=== PATIENT | female | born 1945 | race Caucasian/White ===

== ENCOUNTER → 2018-08-20 09:46 | Outpatient (CLI) | payer MEDICARE, SELFPAY ==
--- NOTE | 2018-08-20 09:48 | DI.RAD.S_ITS ---
PROCEDURE: XR KNEE LT 3V INDICATIONS: left knee pain TECHNIQUE: 3 views of the knee were acquired. COMPARISON: None. FINDINGS: Bones: No fractures or dislocations. There is a mild degree of medial and lateral compartment joint space narrowing, but a moderate degree of such degeneration at the lateral facet of the patellofemoral joint with osteophytic spurring superiorly No suspicious bony lesions. Soft tissues: No joint effusion. No suspicious soft tissue calcifications. 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 Dictated by: Anil Saldivar M.D. on 08/20/2018 at 10:52 Approved by: Anil Saldivar M.D. on 08/20/2018 at 10:54
== END ==
PROVIDERS: PCP Family Medicine; Visit Provider Internal Medicine
DX: M25.562 Pain in left knee (principal); M17.12 Unilateral primary osteoarthritis, left knee
CPT/HCPCS: 73562

== ENCOUNTER → 2018-11-29 10:12 | Outpatient (CLI) | payer MEDICARE, SELFPAY ==
--- NOTE | 2018-11-29 09:15 | DI.MG.S_ITS ---
Patient Name: NORY SANTOYO date: 1945 Sex: F Attending Physician: Christopher Indications: Date: 11/29/2018 10:19 At the request of: DEIRDRE MENENDEZ Procedure: MM screening mammo BI BILATERAL DIGITAL SCREENING MAMMOGRAM 3D/2D WITH CAD: 11/29/2018 CLINICAL: Routine screening. Comparison is made to exams dated: 10/31/2017 mammogram, 10/25/2016 mammogram, and 10/24/2015 mammogram - [facility]. The tissue of both breasts is heterogeneously dense. This may lower the sensitivity of mammography. Current study was also evaluated with a Computer Aided Detection (CAD) system. No significant masses, calcifications, or other findings are seen in either breast. There has been no significant interval change. IMPRESSION: NEGATIVE There is no mammographic evidence of malignancy. A 1 year screening mammogram is recommended. This exam was interpreted at Station ID: [id number]. NOTE: For mammograms, a report in lay terms will be sent to the patient. Approximately 15% of breast malignancies will not be visualized mammographically. In the management of a palpable breast mass, a negative mammogram must not discourage biopsy of a clinically suspicious lesion. Electronically Signed By: Sincere anand/shari:11/29/2018 14:14:20 letter sent: Normal Exam ACR BI-RADS Category 1: Negative 3341F
== END ==
PROVIDERS: PCP Family Medicine; Visit Provider Family Medicine
DX: Z12.31 Encounter for screening mammogram for malignant neoplasm of breast (principal)
CPT/HCPCS: 77063; 77067

== ENCOUNTER → 2018-12-16 08:08 | Outpatient (CLI) | payer MEDICARE, SELFPAY ==
[2018-12-16 09:08] LABS: Add Manual Diff / Slide Review NO; Basophils Absolute Auto 100 /uL (0-100); Basophils Percent Auto 1.9 % (0-2); Eosinophils Absolute Auto 200 /uL (0-450); Eosinophils Percent Auto 4.5 % (2-4); Hematocrit 44.8 % (36-46); Hemoglobin 15.1 g/dL (12.0-16.0); Lymphocytes Absolute Auto 1600 /uL (1100-4500); Lymphocytes Percent Auto 39.5 % (25-40); Mean Corpuscular HGB Conc 33.6 % (30-36); Mean Corpuscular Hemoglobin 31.9 PG (26-34); Mean Corpuscular Volume 94.8 fL (80-100); Monocytes Absolute Auto 400 /uL (0-900); Monocytes Percent Auto 10.4 % (3-14); Neutrophils Absolute Auto 1800 /uL (1500-7000); Neutrophils Percent Auto 43.7 % (50-75); Platelet Count 193 X10^3/uL (150-400); Red Blood Cell Count 4.73 X10^6/uL (4.0-5.2); Red Cell Distribution Width 13.1 % (11.6-14.8); White Blood Cell Count 4.1 X10^3/uL (4.5-11.0)
[2018-12-16 09:18] LABS: Alanine Aminotransferase 36 IU/L (9-52); Albumin 4.7 g/dL (3.5-5.0); Albumin Globulin Ratio 1.6 (1.0-2.8); Alkaline Phosphatase 70 U/L (38-126); Aspartate Aminotransferase 30 IU/L (14-36); BUN Creatinine Ratio 28.8 (6-22); Bilirubin Total 1.5 mg/dL (0.2-1.3); Blood Urea Nitrogen 23 mg/dL (7-17); Calcium 9.8 mg/dL (8.4-10.2); Carbon Dioxide 29 mmol/L (22-32); Chloride 100 mmol/L (98-107); Cholesterol 209 mg/dL (140-199); Estimated Glomerular Filt Rate > 60.0 mL/min (>60); Globulin 2.9 g/dL (1.7-4.1); Glucose 98 mg/dL (80-110); HDL Cholesterol 83 mg/dL (40-60); HEMOLYSIS < 15 (0-50); LDL Cholesterol Calculated 96 mg/dL (<100); Potassium 4.7 mmol/L (3.4-5.1); Sodium 137 mmol/L (137-145); Total Protein 7.6 g/dL (6.3-8.2); Triglycerides 148 mg/dL (35-150)
[2018-12-16 09:51] LABS: TSH w/ Reflex to FT4 3.57 uIU/mL (0.47-4.68)
== END ==
PROVIDERS: PCP Family Medicine; Visit Provider Family Medicine
DX: E03.9 Hypothyroidism, unspecified (principal); E78.2 Mixed hyperlipidemia
CPT/HCPCS: 36415; 80053; 80061; 84443; 85025

== ENCOUNTER → 2019-08-31 15:51 | Outpatient (CLI) | payer MEDICARE, SELFPAY ==
[2019-08-31 16:14] LABS: Add Manual Diff / Slide Review NO; Basophils Absolute Auto 100 /uL (0-100); Basophils Percent Auto 1.1 % (0-2); Eosinophils Absolute Auto 200 /uL (0-450); Eosinophils Percent Auto 2.6 % (2-4); Hematocrit 41.8 % (36-46); Hemoglobin 14.1 g/dL (12.0-16.0); Lymphocytes Absolute Auto 1700 /uL (1100-4500); Lymphocytes Percent Auto 23.6 % (25-40); Mean Corpuscular HGB Conc 33.8 % (30-36); Mean Corpuscular Volume 94.6 fL (80-100); Monocytes Absolute Auto 800 /uL (0-900); Monocytes Percent Auto 10.8 % (3-14); Neutrophils Absolute Auto 4400 /uL (1500-7000); Neutrophils Percent Auto 61.9 % (50-75); Platelet Count 186 X10^3/uL (150-400); Red Blood Cell Count 4.42 X10^6/uL (4.0-5.2); Red Cell Distribution Width 13.1 % (11.6-14.8); White Blood Cell Count 7.1 X10^3/uL (4.5-11.0)
[2019-08-31 16:47] LABS: Alanine Aminotransferase 35 IU/L (9-52); Albumin 4.5 g/dL (3.5-5.0); Albumin Globulin Ratio 1.7 (1.0-2.8); Alkaline Phosphatase 70 U/L (38-126); Aspartate Aminotransferase 33 IU/L (14-36); BUN Creatinine Ratio 32.5 (6-22); Bilirubin Total 1.5 mg/dL (0.2-1.3); Blood Urea Nitrogen 26 mg/dL (7-17); Calcium 9.8 mg/dL (8.4-10.2); Carbon Dioxide 31 mmol/L (22-32); Chloride 104 mmol/L (98-107); Estimated Glomerular Filt Rate > 60.0 mL/min (>60); Globulin 2.6 g/dL (1.7-4.1); Glucose 80 mg/dL (80-110); HEMOLYSIS < 15 (0-50); Potassium 3.8 mmol/L (3.4-5.1); Sodium 141 mmol/L (137-145); Total Protein 7.1 g/dL (6.3-8.2)
[2019-08-31 17:01] LABS: Vitamin D 25 Hydroxy (D3) 27.9 ng/mL (30.0-100.0)
[2019-08-31 17:13] LABS: Thyroid Stimulating Hormone 0.87 uIU/mL (0.47-4.68)
== END ==
PROVIDERS: PCP Family Medicine; Visit Provider Family Medicine
DX: E03.9 Hypothyroidism, unspecified (principal)
CPT/HCPCS: 36415; 80053; 82306; 84443; 85025

== ENCOUNTER → 2019-12-10 08:29 | Outpatient (CLI) | payer MEDICARE, SELFPAY ==
--- NOTE | 2019-12-10 | DI.MG.S_ITS ---
BILATERAL DIGITAL SCREENING MAMMOGRAM 3D/2D WITH CAD: 12/10/2019 CLINICAL: Routine screening. Comparison is made to exams dated: 11/29/2018 mammogram, 10/31/2017 mammogram, 10/25/2016 mammogram, 10/24/2015 mammogram, 08/24/2013 mammogram, and 09/08/2014 mammogram - [facility]. The tissue of both breasts is heterogeneously dense. This may lower the sensitivity of mammography. Current study was also evaluated with a Computer Aided Detection (CAD) system. No significant masses, calcifications, or other findings are seen in either breast. There has been no significant interval change. IMPRESSION: NEGATIVE There is no mammographic evidence of malignancy. A 1 year screening mammogram is recommended. This exam was interpreted at Station ID: [id number]. NOTE: For mammograms, a report in lay terms will be sent to the patient. Approximately 15% of breast malignancies will not be visualized mammographically. In the management of a palpable breast mass, a negative mammogram must not discourage biopsy of a clinically suspicious lesion. Electronically Signed By: Boo gomez/shari:12/10/2019 12:12:37 letter sent: Normal Exam ACR BI-RADS Category 1: Negative 3341F
== END ==
PROVIDERS: PCP Family Medicine; Visit Provider Family Medicine
DX: Z12.31 Encounter for screening mammogram for malignant neoplasm of breast (principal)
CPT/HCPCS: 77063; 77067

== ENCOUNTER 2020-01-05 12:38 | Day surgery (SDC) | payer MEDICARE, SELFPAY ==
[2020-01-05] VITALS (9 sets, daily range): BP systolic 96–127; BP diastolic 49–67; PULSE 50–62; RESP 10–20; TEMP 36.2–36.7; O2SAT 94–100; BMI 20.7
[2020-01-05] MEDS: SODIUM CHLORIDE 0.9% 1,000 ML 200 ML IV (13:25)
--- NOTE | 2020-01-05 14:18 | PM.HP.1 ---
History of Present Illness History of Present Illness Date Patient Seen: 01/05/20 Time Patient Seen: 14:18 Chief complaint: [id number] SCREENING COLONOSOPY Narrative: This is a 74-year-old woman with history of a colonoscopy 10 years ago, which was reportedly normal. She has a history of Graves disease, hyperlipidemia, and depression. She denies any melena, hematochezia, unexplained abdominal pain, or unexplained weight loss. ROS Thirteen system review is otherwise negative other than as mentioned below and in HPI. PE: GENERAL: Well groomed and cooperative. Appears stated age. Answers questions promptly and appropriately. Vital signs noted. HENT: Normocephalic, atraumatic. Hearing intact. Oral mucosa is pink and moist. EYES: Conjunctiva pink, sclera white, no periorbital swelling. CARDIOVASCULAR: Regular rate. No pedal edema. RESPIRATORY: Non-tachypneic, breathing comfortably on room air. GASTROINTESTINAL: Abdomen soft and non-distended GENITALURINARY: No flank tenderness. MUSCULOSKELETAL: Equal tone and mass bilaterally. SKIN: Warm, dry, soft, appropriate color for ethnicity. No other lesions, rashes, or wounds. NEURO: Alert and Oriented X 3. No gross sensory deficits, or cognitive issues. PSYCH: Appropriate affect and mood. Patient History Medical History Chicken pox (Resolved 1951) Graves' disease (Chronic 1983) Measles (Resolved 1951) MRSA infection (Resolved 2011) Mumps (Resolved 1953) Surgical History Anesthesia (Resolved) Status post breast biopsy (Resolved 2011) Family & Social History Family History Father CVD (cardiovascular disease) High cholesterol Stroke Brain bleed Mother Cancer Leukemia Sister Age: 71 Osteoporosis Brother AIDS (acquired immune deficiency syndrome) Hemophilia Social History: household members spouse Tobacco & Substance use: Smoking Status Never smoker alcohol intake current alcohol intake frequency a few times a month Substance Use Type does not use Meds Home Medications and Allergies Home Medications Medication Instructions Recorded Confirmed Type CALCIUM CARBONATE/VITAMIN D3 #0 01/26/10 12/22/19 History (Oyster Shell Calcium-Vit D Tab) cholecalciferol (vitamin D3) 2,000 unit PO QDAY #0 12/31/12 01/05/20 History [Vitamin D3] cyanocobalamin (vitamin B-12) 500 mcg PO QDAY #0 08/30/17 01/05/20 History [Vitamin B-12] varicella-zoster [id number] (PF) 50 0.5 ml IM ONCE #1 each 08/20/18 12/22/19 Rx mcg/0.5 mL IM susp, kit citalopram 10 mg tablet 10 mg PO DAILY #60 tab 08/31/19 01/05/20 Rx levothyroxine 75 mcg tablet See Rx Instructions .ROUTE 09/02/19 01/05/20 Rx .COMPLEX #90 tablet atorvastatin 10 mg tablet 10 mg PO HS #90 tab 11/12/19 01/05/20 Rx Allergies Allergy/AdvReac Type Severity Reaction Status Date / Time No Known Drug Allergies Allergy Verified 01/05/20 13:09 Exam Vital Signs (past 8 hours): - 01/05/20 13:12 Temperature 97.7 F Pulse Rate 62 Respiratory Rate 20 Blood Pressure 127/67 Pulse Oximetry 97 Oxygen Delivery Method Room Air Assessment & Plan Assessment and plan (1) At average risk for colon cancer: Current visit: Yes Status: Acute Assessment & Plan narrative: Risks and benefits of screening colonoscopy and possible polypectomy were discussed with the patient including risk of bleeding, perforation, need for additional procedures, risks of anesthesia. The patient desires to proceed with the colonoscopy procedure. Time Spent With Patient Time with patient: 15-24 minutes Quality VTE Deep Vein Thrombosis/Pulmonary Embolism Present on Admission: No
--- NOTE | 2020-01-05 14:51 | PM.OP.ENDO ---
Operative Date/Time/Diagnoses Date of procedure: 01/05/20 Time of procedure: 14:51 Pre-op diagnosis: Average risk for change cancer Post-op diagnosis: same Procedure & Clinicians Study performed: Colonoscopy Same procedure as scheduled: Yes Indications: Average risk for colon cancer, previous screening colonoscopy 10 years ago Surgeon: Diane Martínez Procedure Notes SCOAP/Timeout: Performed Procedure in detail: The patient was brought to the room and placed in left lateral decubitus position with all bony prominences padded. A time-out was performed and then the patient was given procedural sedation starting with 2 mg of Versed and 100 mcg of fentanyl. She got a total of 3 mg of Versed and 150 micro g of fentanyl for the whole procedure. Vitals were monitored throughout the procedure and remained stable. Once adequately sedated the procedure was begun. A rectal exam was performed revealing no abnormalities. The colonoscope was then introduced to the rectum and advanced to the cecum in the usual fashion. The colon was very tortuous, and it took many advancement maneuvers to safely reach the cecum. The cecum was identified by the appendiceal orifice, the mucosal tri-fold, and the ileocecal valve. The scope was then retracted while rotating side to side and examining each mucosal fold. No polyps, lesions, or abnormalities were seen. At the conclusion of the procedure retroflexion was performed and small grade 1-2 internal hemorrhoids without stigmata of bleeding were seen. The scope was then withdrawn from the rectum the procedure was concluded. The patient tolerated the procedure well and was transferred to the PACU in stable condition. Scope withdrawal time: 8 Sedation minutes: 29 Specimen(s): none sent Complications: none Impression: Normal colon, very tortuous Post-procedure Recommendations: Colonscopy in 10 years (Depending on whether the patient is healthy enough for the procedure at that time. Should be based on discussion with patient's primary care doctor.) Follow up: as needed Disposition: PACU
[2020-01-05] MEDS: fentaNYL 250 MCG/5 ML INJ IV (14:54)
[2020-01-05] MEDS: MIDAZOLAM 5 MG/ML VIAL IV (14:54)
--- NOTE | 2020-01-05 15:56 | SUR.PHASEII ---
Patient ambulated to bathroom without any difficulty and denies dizziness or nausea. GCS 15. Recheck of vitals after ambulation are as follows: BP 111/61, HR 58, RR 16, and oxygen saturation 99% on room air. Home with friend in stable condition. All belongings returned to patient.
== END 2020-01-05 15:59 | disposition home or self-care (01) ==
PROVIDERS: PCP Family Medicine; Referring Provider Surgery; Visit Provider Surgery
PROC: 0DJD8ZZ Inspection of Lower Intestinal Tract, Via Natural or Artificial Opening Endoscopic (ICD-10-PCS; CPT 45378; principal; 2020-01-05 13:45)
DX: Z12.11 Encounter for screening for malignant neoplasm of colon (principal); K64.0 First degree hemorrhoids
CPT/HCPCS: G0121; 99152; 99153; J2250; J3010

== ENCOUNTER → 2020-01-16 09:06 | Outpatient (CLI) | payer MEDICARE, SELFPAY ==
[2020-01-16 10:18] LABS: Cholesterol 161 mg/dL (140-199); HDL Cholesterol 61 mg/dL (40-60); LDL Cholesterol Calculated 65 mg/dL (<100); Triglycerides 174 mg/dL (35-150)
[2020-01-16 10:33] LABS: Vitamin D 25 Hydroxy (D3) 31.9 ng/mL (30.0-100.0)
== END ==
PROVIDERS: PCP Family Medicine; Referring Provider Family Medicine; Visit Provider Family Medicine
DX: E78.2 Mixed hyperlipidemia (principal)
CPT/HCPCS: 36415; 80061; 82306

== ENCOUNTER → 2020-05-27 12:24 | Outpatient (CLI) | payer MEDICARE, SELFPAY ==
[2020-05-27 13:10] LABS: Add Manual Diff / Slide Review NO; Basophils Absolute Auto 0 /uL (0-100); Basophils Percent Auto 0.8 % (0-2); Eosinophils Absolute Auto 100 /uL (0-450); Eosinophils Percent Auto 1.6 % (2-4); Hematocrit 43.2 % (36-46); Hemoglobin 14.2 g/dL (12.0-16.0); Lymphocytes Absolute Auto 1400 /uL (1100-4500); Lymphocytes Percent Auto 28.1 % (25-40); Mean Corpuscular Hemoglobin 31.1 PG (26-34); Mean Corpuscular Volume 94.2 fL (80-100); Monocytes Absolute Auto 500 /uL (0-900); Monocytes Percent Auto 10.2 % (3-14); Neutrophils Absolute Auto 2900 /uL (1500-7000); Neutrophils Percent Auto 59.3 % (50-75); Platelet Count 154 X10^3/uL (150-400); Red Blood Cell Count 4.58 X10^6/uL (4.0-5.2); White Blood Cell Count 4.8 X10^3/uL (4.5-11.0)
[2020-05-27 13:47] LABS: Erythrocyte Sedimentation Rate 6 MM/HR (0-20)
[2020-05-27 14:47] LABS: Free T4, Direct Thyroxine 1.27 ng/dL (0.78-2.19)
[2020-05-27 15:01] LABS: Thyroid Stimulating Hormone 0.462 uIU/mL (0.47-4.68)
[2020-05-27 16:45] LABS: Alanine Aminotransferase 43 IU/L (<35); Albumin 4.3 g/dL (3.5-5.0); Albumin Globulin Ratio 1.6 (1.0-2.8); Alkaline Phosphatase 62 U/L (38-126); Aspartate Aminotransferase 39 IU/L (14-36); BUN Creatinine Ratio 29.7 (6-22); Bilirubin Total 1.4 mg/dL (0.2-1.3); Blood Urea Nitrogen 22 mg/dL (7-17); Calcium 9.8 mg/dL (8.4-10.2); Carbon Dioxide 28 mmol/L (22-32); Chloride 104 mmol/L (98-107); Estimated Glomerular Filt Rate > 60.0 mL/min (>60); Globulin 2.7 g/dL (1.7-4.1); Glucose 98 mg/dL (80-110); HEMOLYSIS 16 (0-50); Potassium 5.2 mmol/L (3.4-5.1); Sodium 137 mmol/L (137-145)
[2020-05-27 17:19] LABS: Ferritin 29 ng/mL (11-264)
== END ==
PROVIDERS: PCP Family Medicine; Referring Provider Physician Assistant Medical; Visit Provider Physician Assistant Medical
DX: L64.8 Other androgenic alopecia (principal)
CPT/HCPCS: 36415; 80053; 82728; 84439; 84443; 85025; 85651

== ENCOUNTER → 2020-06-22 10:51 | Outpatient (CLI) | payer MEDICARE, SELFPAY ==
[2020-06-22 12:27] LABS: Alanine Aminotransferase 36 IU/L (<35); Albumin 4.4 g/dL (3.5-5.0); Alkaline Phosphatase 88 U/L (38-126); Aspartate Aminotransferase 33 IU/L (14-36); Bilirubin Total 1.1 mg/dL (0.2-1.3); Globulin 2.2 g/dL (1.7-4.1); HEMOLYSIS < 15 (0-50); Total Protein 6.6 g/dL (6.3-8.2)
[2020-06-22 12:52] LABS: Thyroid Stimulating Hormone 0.097 uIU/mL (0.47-4.68)
[2020-06-23 06:36] LABS: HBsAg Screen Negative (Negative); Hepatitis A Antibody IgM Negative (Negative); Hepatitis B Core Antibody IgM Negative (Negative); Hepatitis C Antibody <0.1 s/co ratio (0.0-0.9)
== END ==
PROVIDERS: PCP Family Medicine; Referring Provider Family Medicine; Visit Provider Family Medicine
DX: E03.9 Hypothyroidism, unspecified (principal)
CPT/HCPCS: 36415; 80074; 80076; 84443

== ENCOUNTER → 2020-07-06 17:36 | Outpatient (CLI) | payer MEDICARE, SELFPAY ==
[2020-07-06 18:14] LABS: C-Reactive Protein Quant < 0.5 mg/dL (<1.0)
[2020-07-06 18:20] LABS: Erythrocyte Sedimentation Rate 5 MM/HR (0-20)
== END ==
PROVIDERS: PCP Family Medicine; Referring Provider Family Medicine; Visit Provider Family Medicine
DX: R41.3 Other amnesia (principal)
CPT/HCPCS: 36415; 85651; 86140

== ENCOUNTER → 2020-07-18 13:24 | Outpatient (CLI) | payer MEDICARE, SELFPAY ==
--- NOTE | 2020-07-18 13:25 | DI.MRI.S_ITS ---
PROCEDURE: MR HEAD/BRAIN WO CON INDICATIONS: Memory impairment TECHNIQUE: Noncontrast axial T1 spin echo, axial T2 fast spin echo, sagittal and axial FLAIR, coronal T2 fast spin echo, axial gradient echo, axial diffusion and ADC through the brain. COMPARISON: None. FINDINGS: Image quality: Excellent. CSF Spaces: Basal cisterns are patent. No extra-axial fluid collections. Ventricles are normal in size and shape. Brain: No intracranial masses or hemorrhage. Nicole/white matter interface is normal. Brainstem appears normal. Diffusion-weighted images demonstrate no acute ischemic insult. No chronic ischemic insults. Normal intravascular flow voids are present. Skull and face: Calvarium has normal marrow signal. Orbits appear normal. Sinuses: Sinuses and mastoids are clear. IMPRESSION: Excellent appearance of the brain parenchyma for age, source of memory loss is not seen. No underlying ischemic injury or mass lesion is found. Dictated by: Anil Saldivar M.D. on 07/18/2020 at 13:54 Approved by: Anil Saldivar M.D. on 07/18/2020 at 13:55
== END ==
PROVIDERS: PCP Family Medicine; Referring Provider Family Medicine; Visit Provider Family Medicine
DX: R41.3 Other amnesia (principal)
CPT/HCPCS: 70551

== ENCOUNTER → 2020-07-29 14:09 | Outpatient (CLI) | payer MEDICARE, SELFPAY ==
[2020-07-29 16:43] LABS: Thyroid Stimulating Hormone 7.48 uIU/mL (0.47-4.68)
== END ==
PROVIDERS: PCP Family Medicine; Referring Provider Family Medicine; Visit Provider Family Medicine
DX: E03.9 Hypothyroidism, unspecified (principal)
CPT/HCPCS: 36415; 84443

== ENCOUNTER → 2020-10-03 11:39 | Outpatient (CLI) | payer MEDICARE, SELFPAY ==
[2020-10-03 13:19] LABS: Thyroid Stimulating Hormone 1.86 uIU/mL (0.47-4.68)
== END ==
PROVIDERS: PCP Family Medicine; Referring Provider Family Medicine; Visit Provider Family Medicine
DX: E03.9 Hypothyroidism, unspecified (principal)
CPT/HCPCS: 36415; 84443

== ENCOUNTER → 2020-11-23 14:39 | Outpatient (CLI) | payer MEDICARE, SELFPAY | PROVIDERS: PCP Student in an Organized Health Care Education/Training Program; Referring Provider Student in an Organized Health Care Education/Training Program; Visit Provider Student in an Organized Health Care Education/Training Program | DX: Z13.820 Encounter for screening for osteoporosis (principal); Z78.0 Asymptomatic menopausal state; E07.9 Disorder of thyroid, unspecified; Z82.62 Family history of osteoporosis | CPT/HCPCS: 77080 ==

== ENCOUNTER → 2020-12-16 13:54 | Outpatient (CLI) | payer MEDICARE, SELFPAY ==
[2020-12-16] MEDS: COVID-19 VACC #1, MRNA(MOD) 100 MCG/0.5 ML VIAL IM (14:14)
== END ==
PROVIDERS: PCP Student in an Organized Health Care Education/Training Program; Visit Provider Internal Medicine
DX: Z23 Encounter for immunization (principal)
CPT/HCPCS: 0011A; 91301

== ENCOUNTER → 2021-01-07 13:26 | Outpatient (CLI) | payer MEDICARE, SELFPAY ==
--- NOTE | 2021-01-07 | DI.MG.S_ITS ---
BILATERAL DIGITAL SCREENING MAMMOGRAM 3D/2D WITH CAD: 01/07/2021 CLINICAL: Routine screening. Comparison is made to exams dated: 12/10/2019 mammogram, 11/29/2018 mammogram, and 10/31/2017 mammogram - [facility]. The tissue of both breasts is heterogeneously dense. This may lower the sensitivity of mammography. Current study was also evaluated with a Computer Aided Detection (CAD) system. No significant masses, calcifications, or other findings are seen in either breast. There has been no significant interval change. IMPRESSION: NEGATIVE There is no mammographic evidence of malignancy. A 1 year screening mammogram is recommended. This exam was interpreted at Station ID: [id number]. NOTE: For mammograms, a report in lay terms will be sent to the patient. Approximately 15% of breast malignancies will not be visualized mammographically. In the management of a palpable breast mass, a negative mammogram must not discourage biopsy of a clinically suspicious lesion. Electronically Signed By: Sadi Terrazas M.D., jr/shari:01/09/2021 08:45:31 letter sent: Normal Exam ACR BI-RADS Category 1: Negative 3341F
== END ==
PROVIDERS: PCP Student in an Organized Health Care Education/Training Program; Referring Provider Student in an Organized Health Care Education/Training Program; Visit Provider Student in an Organized Health Care Education/Training Program
DX: Z12.31 Encounter for screening mammogram for malignant neoplasm of breast (principal)
CPT/HCPCS: 77063; 77067

== ENCOUNTER → 2021-01-13 13:32 | Outpatient (CLI) | payer MEDICARE, SELFPAY ==
[2021-01-13] MEDS: COVID-19 VACC #2, MRNA(MOD) 100 MCG/0.5 ML VIAL IM (13:40)
== END ==
PROVIDERS: PCP Student in an Organized Health Care Education/Training Program; Visit Provider Internal Medicine
DX: Z23 Encounter for immunization (principal)
CPT/HCPCS: 0012A; 91301

== ENCOUNTER → 2022-01-09 14:51 | Outpatient (CLI) | payer MEDICARE, SELFPAY ==
--- NOTE | 2022-01-09 | DI.MG.S_ITS ---
BILATERAL DIGITAL SCREENING MAMMOGRAM 3D/2D WITH CAD: 01/09/2022 CLINICAL: Routine screening. Comparison is made to exams dated: 01/07/2021 mammogram, 12/10/2019 mammogram, and 11/29/2018 mammogram - [facility]. The tissue of both breasts is heterogeneously dense. This may lower the sensitivity of mammography. Current study was also evaluated with a Computer Aided Detection (CAD) system. No significant masses, calcifications, or other findings are seen in either breast. There has been no significant interval change. IMPRESSION: NEGATIVE There is no mammographic evidence of malignancy. A 1 year screening mammogram is recommended. This exam was interpreted at Station ID: [id number]. NOTE: For mammograms, a report in lay terms will be sent to the patient. Approximately 15% of breast malignancies will not be visualized mammographically. In the management of a palpable breast mass, a negative mammogram must not discourage biopsy of a clinically suspicious lesion. Electronically Signed By: Sincere anand/shari:01/09/2022 15:53:14 letter sent: Normal Exam ACR BI-RADS Category 1: Negative 3341F
== END ==
PROVIDERS: PCP Student in an Organized Health Care Education/Training Program; Referring Provider Student in an Organized Health Care Education/Training Program; Visit Provider Student in an Organized Health Care Education/Training Program
DX: Z12.31 Encounter for screening mammogram for malignant neoplasm of breast (principal)
CPT/HCPCS: 77063; 77067

== ENCOUNTER → 2022-02-12 08:13 | Outpatient (CLI) | payer MEDICARE, SELFPAY ==
[2022-02-12 09:47] LABS: Add Manual Diff / Slide Review NO; Basophils Absolute Auto 100 /uL (0-100); Basophils Percent Auto 1.3 % (0-2); Eosinophils Absolute Auto 200 /uL (0-450); Eosinophils Percent Auto 4.7 % (2-4); Hematocrit 41.8 % (36-46); Hemoglobin 14.1 g/dL (12.0-16.0); Lymphocytes Absolute Auto 1300 /uL (1100-4500); Mean Corpuscular HGB Conc 33.8 % (30-36); Mean Corpuscular Hemoglobin 31.6 PG (26-34); Mean Corpuscular Volume 93.7 fL (80-100); Monocytes Absolute Auto 500 /uL (0-900); Monocytes Percent Auto 10.6 % (3-14); Neutrophils Absolute Auto 2400 /uL (1500-7000); Neutrophils Percent Auto 54.4 % (50-75); Platelet Count 194 X10^3/uL (150-400); Red Blood Cell Count 4.46 X10^6/uL (4.0-5.2); Red Cell Distribution Width 13.2 % (11.6-14.8); White Blood Cell Count 4.5 X10^3/uL (4.5-11.0)
[2022-02-12 10:22] LABS: BUN Creatinine Ratio 38.5 (6-22); Blood Urea Nitrogen 30 mg/dL (7-17); Calcium 9.5 mg/dL (8.4-10.2); Carbon Dioxide 28 mmol/L (22-32); Chloride 105 mmol/L (98-107); Cholesterol 194 mg/dL (140-199); Estimated Glomerular Filt Rate > 60.0 mL/min (>60); Glucose 96 mg/dL (80-110); HDL Cholesterol 73 mg/dL (40-60); HEMOLYSIS < 15 (0-50); LDL Cholesterol Calculated 102 mg/dL (<100); Sodium 138 mmol/L (137-145); Triglycerides 97 mg/dL (35-150)
[2022-02-12 10:26] LABS: Potassium 5.6 mmol/L (3.4-5.1)
[2022-02-12 10:50] LABS: TSH w/ Reflex to FT4 2.02 uIU/mL (0.47-4.68)
[2022-02-12 11:06] LABS: Vitamin B12 791 pg/mL (239-931)
[2022-02-12 16:10] LABS: Vitamin D 25 Hydroxy (D3) 34.8 ng/mL (30.0-100.0)
== END ==
PROVIDERS: PCP Student in an Organized Health Care Education/Training Program; Referring Provider Student in an Organized Health Care Education/Training Program; Visit Provider Student in an Organized Health Care Education/Training Program
DX: E03.9 Hypothyroidism, unspecified (principal); E55.9 Vitamin D deficiency, unspecified; F32.9 Major depressive disorder, single episode, unspecified; R41.3 Other amnesia; R53.83 Other fatigue; E78.2 Mixed hyperlipidemia
CPT/HCPCS: 36415; 80048; 80061; 82306; 82607; 84443; 85025

== ENCOUNTER → 2022-03-15 15:59 | Outpatient (CLI) | payer MEDICARE, SELFPAY ==
--- NOTE | 2022-03-15 16:00 | DI.RAD.S_ITS ---
PROCEDURE: XR KNEE LT 3V INDICATIONS: Knee pain not responding to PT TECHNIQUE: 3 views of the knee were acquired. COMPARISON: [facility], CR, XR KNEE LT 3V, 08/20/2018, 9:34. FINDINGS: Bones: No fractures or dislocations. No suspicious bony lesions. Tricompartmental knee joint space narrowing with periarticular osteophyte formation, severe involving the lateral patellofemoral knee joint. There is mild lateral patellar migration and tilt. Soft tissues: No significant joint effusion. No suspicious soft tissue calcifications. IMPRESSION: 1. Tricompartmental knee joint degeneration, severe involving the lateral patellofemoral knee joint which has progressed compared to prior examination dated 08/20/2018. Dictated by: Ashish CARD Interpreted: Latanya Shields MD on 03/15/2022 at 16:29 Transcribed by: MORENITA on 03/15/2022 at 16:30 Approved by: Latanya Shields M.D. on 03/15/2022 at 16:36
== END ==
PROVIDERS: PCP Student in an Organized Health Care Education/Training Program; Referring Provider Student in an Organized Health Care Education/Training Program; Visit Provider Student in an Organized Health Care Education/Training Program
DX: M25.562 Pain in left knee (principal); M17.12 Unilateral primary osteoarthritis, left knee
CPT/HCPCS: 73562

== ENCOUNTER → 2022-03-27 14:15 | Outpatient (CLI) | payer MEDICARE, SELFPAY ==
[2022-03-27 15:25] LABS: Blood Urea Nitrogen 19 mg/dL (7-17); Calcium 9.3 mg/dL (8.4-10.2); Carbon Dioxide 30 mmol/L (22-32); Chloride 102 mmol/L (98-107); Estimated Glomerular Filt Rate > 60 mL/min (>60); Glucose 93 mg/dL (80-110); HEMOLYSIS < 15 (0-50); Magnesium 2.1 mg/dL (1.6-2.3); Potassium 4.4 mmol/L (3.4-5.1); Sodium 138 mmol/L (137-145)
== END ==
PROVIDERS: Family Provider Student in an Organized Health Care Education/Training Program; PCP Student in an Organized Health Care Education/Training Program; Referring Provider Student in an Organized Health Care Education/Training Program; Visit Provider Student in an Organized Health Care Education/Training Program
DX: E87.5 Hyperkalemia (principal)
CPT/HCPCS: 36415; 80048; 83735

== ENCOUNTER 2022-05-17 09:45 | Outpatient (RCR) | payer MEDICARE, SELFPAY ==
--- NOTE | 2022-03-21 17:24 | PT.OIE ---
Current Diagnoses Trochanteric bursitis, left hip (03/21/22) Iliotibial band syndrome, left leg (03/21/22) Unspecified urinary incontinence (03/21/22) Past Medical History (Last Reviewed 01/05/20 @ 14:20 by Diane Martínez MD) Chicken pox (1951) Graves' disease (1983) Measles (1951) MRSA infection (2011) Mumps (1953) Past Surgical History (Last Reviewed 01/05/20 @ 14:20 by Diane Martínez MD) Anesthesia Status post breast biopsy (2011) Visit Care Team Role Provider Type Loki Diaz MD Attending Provider Physician Family Provider Primary Care Provider Referring Provider Specialty: Internal Medicine Address: [address] [place] [address], [address], [facility] Email: [email or web address] Physical Therapy Initial Evaluation PT-OP-A Visit Information Start: 03/21/22 09:20 Freq: Status: Active Protocol: Document 03/21/22 10:34 [facility] (Rec: 03/21/22 11:19 [facility] [id number]) Out-Patient Physical Therapy Visit Information Visit Information Visit Type Initial Evaluation Visit Start Time 10:30 Visit Stop Time 11:15 Total Visit Minutes 45 Visit Number 1 Evaluation Information Evaluation Date 03/21/22 PT-OP-B Current Condition Start: 03/21/22 09:20 Freq: Status: Active Protocol: Document 03/21/22 10:30 [facility] (Rec: 03/21/22 11:19 [facility] [id number]) Current Condition History of Current Condition Onset Date 1.5 years ago History of Current Condition pt had a history of ITB issues x 6 weeks and she has been going to PT for this and it is better. pts symtoms started with walking [employer], she started wearing a pad with walking, it seemed to progresss. Then she started noticing leaking that happened after her coffee in the am and she started wearing pads. Leakage can occur with getting up and down and coughing. She does note that she has had more urgency to void. She does wake up and void 1 xm per night. Sometimes two times per night Prior Treatments and Tests 1 vaginal delivery. PT-OP-C Subjective Start: 03/21/22 09:20 Freq: Status: Active Protocol: Document 03/21/22 10:30 [facility] (Rec: 03/22/22 15:10 [facility] [id number]) Patient Questionnaires Pelvic Pain and Urgency/Frequency Patient Symptom Scale Pelvic Pain Score 7 PT-OP-I Pelvic Floor Start: 03/21/22 14:12 Freq: Status: Active Protocol: Document 03/21/22 10:30 [facility] (Rec: 03/21/22 14:17 [facility] [id number]) Pelvic Floor Assessment Urine Pelvic Floor Surgery No Urinary Symptoms Urge Sensation Leakage Size Large Leakage Cause Cough,Exercise,Lifting,Sneeze Other Leakage Causes leakage increases with walking . Joi reports she uses a size 5 pad which is a heavy duty pad and she fills it up on a walk. No leaks at night Nocturia 1-2 times per night Pelvic Clock Pelvic Clock 3-6 Guarding Pelvic Clock 6-9 Guarding Pelvic Clock Other left side guarding and difficulty relaxing following a contraction Contraction Ability Voluntary Contraction Weak Voluntary Relaxation Weak Manual Muscle Testing Left 3 Manual Muscle Testing Right 3 Manual Muscle Testing Anterior 2 Manual Muscle Testing Posterior 2 Muscle Endurance (Seconds) 3 Comments Pelvic Floor Comments Decreased endurnace of the pelvic floor, pt is guarded on the left and she has difficulty relaxing her pelvic floor following a contraction due to guarding on the left side PT-OP-J Posture/Palpation/Skin Start: 03/21/22 09:20 Freq: Status: Active Protocol: Document 03/21/22 10:30 [facility] (Rec: 03/22/22 15:08 [facility] [id number]) Palpation Assessment Location left lateral garsia of the levator ani Palpation Findings Soft Tissue Tightness,Muscle Guarding,Tenderness Palpation Details pt has history of left sided trochteric bursitis and hip pain, left sided pelvic floor guarding PT-OP-Q Treatments Start: 03/21/22 09:20 Freq: Status: Active Protocol: Document 03/21/22 10:30 [facility] (Rec: 03/22/22 15:08 [facility] [id number]) Therapeutic Exercises Supine Exercises pelvic floor isolation Reps/Minutes pt to start with holding 3-5 seconds and relax for 10 seconds between con PT-OP-T Assessment and Plan Start: 03/21/22 09:20 Freq: Status: Active Protocol: Document 03/21/22 10:30 [facility] (Rec: 03/22/22 15:11 [facility] [id number]) Physical Therapy Assessment Rehab Potential Rehabilitation Potential Excellent Evaluation Complexity Number of Personal Factors/Comorbidities 0 Number of Body Systems Impaired 1-2 Clinical Presentation at Evaluation Stable Impairments Impairments Activity Tolerance,Functional Activities,Soft Tissue Mobility,Strength,Tone Other Impairments urinary incontinence Goals 4 Impairment Decreased endurance of the levator ani with Joi being able to sustain a contraction for 3 seconds in supine Short Term Goal (STG) Joi is able to sustain a pelvic floor contraction x 10 seconds in supine STG Duration 6 weeks Usp Goal (LTG) Joi is able to sustain a pelvic floor contraction x 10 seconds in supine and standing LTG Duration 12 weeks 3 Impairment Muscle guarding of the left lateral wall of the levator ani and in the obturator internus on the left Short Term Goal (STG) Joi is educated on stretches for her pelvic floor and hip ER to help relax the pelvic floor at rest and improve her ability to fully void STG Duration 4 weeks 2 Impairment Decreased strength of the levator ani Usp Goal (LTG) Joi is able to improve strength of the levator ani by 1 muscle grade or better for improved support to her bladder LTG Duration 12 weeks 1 Impairment urinary stress incontinence made worse with walking and with change of positions such as sit-stand [employer] Goal (LTG) Joi reports a overall reduction in urinary stress incontinence and is able to walk the loop at [facility] without leaking LTG Duration 12 weeks Assessment Summary Assessment Joi is a 76 year old female referred to physical therapy with c/o worsening urinary incontinence that began 1 year ago. Joi also reports that she began experiencing lateral hip pain in this last year but has been going to PT and it is getting better overall. Her incontinence symptom began with walking [facility]. She notes she started leaking with walking and gradually leaking has progressed to filling a heavy adult pad. She notes coffee intake can increase her leaking and she can also leak with sit-stand activities. With pelvic floor examination today Joi tests 2/5 MMT for the anterior and posterior garsia and 3/5 for the lateral garsia. She is guarded in the left lateral wall of the levator ani as well is in the obturator internus. Once she contracts her pelvic floor she has difficulty relaxing it on the left side. This is most likey a direct correlation to her left hip pain. She is working on stretches for her hip with PT and we will include stretches for the pelvic floor with her pelvic health PT. Joi has difficulty sustaining a pelvic floor contraction greater than a few seconds. She is a good candidate for pelvic floor endurance training with EMG biofeedback Physical Therapy Plan Frequency and Duration Frequency of Treatment 1x/Week Duration of Treatment 12 Plan of Care Start Date 03/21/22 Plan of Care End Date 06/21/22 Therapeutic Interventions Therapeutic Interventions Home Exercise Program, Neuromuscular Re-education, Self-Care/Home Management,Soft Tissue Mobilization, Therapeutic Exercises Modalities Biofeedback Next Visit Focus/Plan Next Note Type Treatment Note Next Visit Plan Begin EMG biofeedback for pelvic floor strengthening and endurance training next visit , stretches for the hips and pelvic floor to encourage full resting tone of the levator ani
--- NOTE | 2022-03-21 17:25 | PT.OPPOC ---
Physical, Occupational & Speech Therapy At [facility] Current Diagnoses Trochanteric bursitis, left hip (03/21/22) Iliotibial band syndrome, left leg (03/21/22) Unspecified urinary incontinence (03/21/22) Visit Care Team Role Provider Type Loki Diaz MD Attending Provider Physician Family Provider Primary Care Provider Referring Provider Specialty: Internal Medicine Address: [address] [place] [address], [address], [address] Email: [email or web address] Plan Of Care PT-OP-T Assessment and Plan Start: 03/21/22 09:20 Freq: Status: Active Protocol: Document 03/21/22 10:30 [facility] (Rec: 03/22/22 15:11 [facility] [id number]) Physical Therapy Assessment Rehab Potential Rehabilitation Potential Excellent Evaluation Complexity Number of Personal Factors/Comorbidities 0 Number of Body Systems Impaired 1-2 Clinical Presentation at Evaluation Stable Impairments Impairments Activity Tolerance,Functional Activities,Soft Tissue Mobility,Strength,Tone Other Impairments urinary incontinence Goals 4 Impairment Decreased endurance of the levator ani with Joi being able to sustain a contraction for 3 seconds in supine Short Term Goal (STG) Joi is able to sustain a pelvic floor contraction x 10 seconds in supine STG Duration 6 weeks Penitentiary Goal (LTG) Joi is able to sustain a pelvic floor contraction x 10 seconds in supine and standing LTG Duration 12 weeks 3 Impairment Muscle guarding of the left lateral wall of the levator ani and in the obturator internus on the left Short Term Goal (STG) Joi is educated on stretches for her pelvic floor and hip ER to help relax the pelvic floor at rest and improve her ability to fully void STG Duration 4 weeks 2 Impairment Decreased strength of the levator ani Penitentiary Goal (LTG) Joi is able to improve strength of the levator ani by 1 muscle grade or better for improved support to her bladder LTG Duration 12 weeks 1 Impairment urinary stress incontinence made worse with walking and with change of positions such as sit-stand Penitentiary Goal (LTG) Joi reports a overall reduction in urinary stress incontinence and is able to walk the loop at [facility] without leaking LTG Duration 12 weeks Assessment Summary Assessment Joi is a 76 year old female referred to physical therapy with c/o worsening urinary incontinence that began 1 year ago. Joi also reports that she began experiencing lateral hip pain in this last year but has been going to PT and it is getting better overall. Her incontinence symptom began with walking [employer] [place] [address]. She notes she started leaking with walking and gradually leaking has progressed to filling a heavy adult pad. She notes coffee intake can increase her leaking and she can also leak with sit-stand activities. With pelvic floor examination today Joi tests 2/5 MMT for the anterior and posterior garsia and 3/5 for the lateral garsia. She is guarded in the left lateral wall of the levator ani as well is in the obturator internus. Once she contracts her pelvic floor she has difficulty relaxing it on the left side. This is most likey a direct correlation to her left hip pain. She is working on stretches for her hip with PT and we will include stretches for the pelvic floor with her pelvic health PT. Joi has difficulty sustaining a pelvic floor contraction greater than a few seconds. She is a good candidate for pelvic floor endurance training with EMG biofeedback Physical Therapy Plan Frequency and Duration Frequency of Treatment 1x/Week Duration of Treatment 12 Plan of Care Start Date 03/21/22 Plan of Care End Date 06/21/22 Therapeutic Interventions Therapeutic Interventions Home Exercise Program, Neuromuscular Re-education, Self-Care/Home Management,Soft Tissue Mobilization, Therapeutic Exercises Modalities Biofeedback Next Visit Focus/Plan Next Note Type Treatment Note Next Visit Plan Begin EMG biofeedback for pelvic floor strengthening and endurance training next visit , stretches for the hips and pelvic floor to encourage full resting tone of the levator ani Plan of Care Dates Plan of Care Start Date 03/21/22 Plan of Care End Date 06/21/22 Electronically Signed by: Amada Palacios, PT 03/22/22 6072 If you are in agreement with this Plan of Care, please return a signed and dated copy. I have reviewed this Plan of Care and certify that the skilled therapy services above are required to meet the patient?s needs. Physician Signature Date Printed Name and Credentials Clinical Instructor Signature Printed Name and Credentials
--- NOTE | 2022-03-29 17:19 | PT.OTN ---
Current Diagnoses Trochanteric bursitis, left hip (03/29/22) Iliotibial band syndrome, left leg (03/29/22) Unspecified urinary incontinence (03/29/22) Physical Therapy Treatment Note PT-OP-A Visit Information Start: 03/21/22 09:20 Freq: Status: Active Protocol: Document 03/29/22 14:52 [facility] (Rec: 03/29/22 16:04 [facility] [id number]) Out-Patient Physical Therapy Visit Information Visit Information Visit Type Treatment Note Visit Start Time 13:20 Visit Stop Time 14:05 Total Visit Minutes 45 Visit Number 2 PT-OP-B Current Condition Start: 03/21/22 09:20 Freq: Status: Active Protocol: Document 03/21/22 10:30 [facility] (Rec: 03/21/22 11:19 [facility] [id number]) Current Condition History of Current Condition Onset Date 1.5 years ago History of Current Condition pt had a history of ITB issues x 6 weeks and she has been going to PT for this and it is better. pts symtoms started with walking [employer], she started wearing a pad with walking, it seemed to progresss. Then she started noticing leaking that happened after her coffee in the am and she started wearing pads. Leakage can occur with getting up and down and coughing. She does note that she has had more urgency to void. She does wake up and void 1 xm per night. Sometimes two times per night Prior Treatments and Tests 1 vaginal delivery. PT-OP-C Subjective Start: 03/21/22 09:20 Freq: Status: Active Protocol: Document 03/29/22 14:52 [facility] (Rec: 03/29/22 16:04 [facility] [id number]) OP-PT Subjective Patient Comments Patient Comments pt reports she has been trying the exercises and has been trying to get them in 3 times per day as she is able to PT-OP-I Pelvic Floor Start: 03/21/22 14:12 Freq: Status: Active Protocol: Document 03/21/22 10:30 [facility] (Rec: 03/21/22 14:17 [facility] [id number]) Pelvic Floor Assessment Urine Pelvic Floor Surgery No Urinary Symptoms Urge Sensation Leakage Size Large Leakage Cause Cough,Exercise,Lifting,Sneeze Other Leakage Causes leakage increases with walking . Joi reports she uses a size 5 pad which is a heavy duty pad and she fills it up on a walk. No leaks at night Nocturia 1-2 times per night Pelvic Clock Pelvic Clock 3-6 Guarding Pelvic Clock 6-9 Guarding Pelvic Clock Other left side guarding and difficulty relaxing following a contraction Contraction Ability Voluntary Contraction Weak Voluntary Relaxation Weak Manual Muscle Testing Left 3 Manual Muscle Testing Right 3 Manual Muscle Testing Anterior 2 Manual Muscle Testing Posterior 2 Muscle Endurance (Seconds) 3 Comments Pelvic Floor Comments Decreased endurnace of the pelvic floor, pt is guarded on the left and she has difficulty relaxing her pelvic floor following a contraction due to guarding on the left side PT-OP-J Posture/Palpation/Skin Start: 03/21/22 09:20 Freq: Status: Active Protocol: Document 03/21/22 10:30 [facility] (Rec: 03/22/22 15:08 [facility] [id number]) Palpation Assessment Location left lateral garsia of the levator ani Palpation Findings Soft Tissue Tightness,Muscle Guarding,Tenderness Palpation Details pt has history of left sided trochteric bursitis and hip pain, left sided pelvic floor guarding PT-OP-Q Treatments Start: 03/21/22 09:20 Freq: Status: Active Protocol: Document 03/29/22 14:52 [facility] (Rec: 03/29/22 16:04 [facility] [id number]) Therapeutic Exercises Supine Exercises quick pelvic floor contractions Reps/Minutes x 10 reps holding 2 seconds on and 2 seconds off pelvic floor isolation Reps/Minutes 10 seconds holds x 10 reps Comments average 16.2 26.2 uv Neuro Re-Education Treatment Other Activities EMG biofeedback Details pelvic floor neuro re- education with EMG biofeedback Comments good tolerance for EMG biofeedback and pt was able to increase her endurance this week to 10 second hold time in supine Self-Care/Home Management Treatment Education Patient Education Home Exercise Program Other Education pt was educated in urge deference technique and bladder retraining PT-OP-T Assessment and Plan Start: 03/21/22 09:20 Freq: Status: Active Protocol: Document 03/29/22 14:52 [facility] (Rec: 03/29/22 16:04 [facility] [id number]) Physical Therapy Assessment Assessment Summary Assessment Joi did well with EMG biofeedback today and was able to increase her endurance to 10 second hold time in supine. She was also able to relax her pelvic floor in between contractions Physical Therapy Plan Frequency and Duration Frequency of Treatment 1x/Week Duration of Treatment 12 Plan of Care Start Date 03/21/22 Plan of Care End Date 06/21/22 Therapeutic Interventions Therapeutic Interventions Home Exercise Program, Neuromuscular Re-education, Self-Care/Home Management,Soft Tissue Mobilization, Therapeutic Exercises Next Visit Focus/Plan Next Note Type Treatment Note Next Visit Plan continue with the EMG biofeedback, pelvic floor endurance and strengthening
--- NOTE | 2022-04-05 13:34 | PT.OTN ---
Current Diagnoses Trochanteric bursitis, left hip (04/05/22) Iliotibial band syndrome, left leg (04/05/22) Unspecified urinary incontinence (04/05/22) Physical Therapy Treatment Note PT-OP-A Visit Information Start: 03/21/22 09:20 Freq: Status: Active Protocol: Document 04/05/22 10:38 [facility] (Rec: 04/05/22 13:34 [facility] [id number]) Out-Patient Physical Therapy Visit Information Visit Information Visit Type Treatment Note Visit Start Time 10:38 Visit Stop Time 11:20 Total Visit Minutes 42 Visit Number 3 PT-OP-B Current Condition Start: 03/21/22 09:20 Freq: Status: Active Protocol: Document 03/21/22 10:30 [facility] (Rec: 03/21/22 11:19 [facility] [id number]) Current Condition History of Current Condition Onset Date 1.5 years ago History of Current Condition pt had a history of ITB issues x 6 weeks and she has been going to PT for this and it is better. pts symtoms started with walking [employer], she started wearing a pad with walking, it seemed to progresss. Then she started noticing leaking that happened after her coffee in the am and she started wearing pads. Leakage can occur with getting up and down and coughing. She does note that she has had more urgency to void. She does wake up and void 1 xm per night. Sometimes two times per night Prior Treatments and Tests 1 vaginal delivery. PT-OP-C Subjective Start: 03/21/22 09:20 Freq: Status: Active Protocol: Document 04/05/22 10:38 [facility] (Rec: 04/05/22 13:34 [facility] [id number]) OP-PT Subjective Patient Comments Patient Comments Joi reports she has been trying the urge technque and has been working on her long pelvic floor holds PT-OP-I Pelvic Floor Start: 03/21/22 14:12 Freq: Status: Active Protocol: Document 03/21/22 10:30 [facility] (Rec: 03/21/22 14:17 [facility] [id number]) Pelvic Floor Assessment Urine Pelvic Floor Surgery No Urinary Symptoms Urge Sensation Leakage Size Large Leakage Cause Cough,Exercise,Lifting,Sneeze Other Leakage Causes leakage increases with walking . Joi reports she uses a size 5 pad which is a heavy duty pad and she fills it up on a walk. No leaks at night Nocturia 1-2 times per night Pelvic Clock Pelvic Clock 3-6 Guarding Pelvic Clock 6-9 Guarding Pelvic Clock Other left side guarding and difficulty relaxing following a contraction Contraction Ability Voluntary Contraction Weak Voluntary Relaxation Weak Manual Muscle Testing Left 3 Manual Muscle Testing Right 3 Manual Muscle Testing Anterior 2 Manual Muscle Testing Posterior 2 Muscle Endurance (Seconds) 3 Comments Pelvic Floor Comments Decreased endurnace of the pelvic floor, pt is guarded on the left and she has difficulty relaxing her pelvic floor following a contraction due to guarding on the left side PT-OP-J Posture/Palpation/Skin Start: 03/21/22 09:20 Freq: Status: Active Protocol: Document 03/21/22 10:30 [facility] (Rec: 03/22/22 15:08 [facility] [id number]) Palpation Assessment Location left lateral garsia of the levator ani Palpation Findings Soft Tissue Tightness,Muscle Guarding,Tenderness Palpation Details pt has history of left sided trochteric bursitis and hip pain, left sided pelvic floor guarding PT-OP-Q Treatments Start: 03/21/22 09:20 Freq: Status: Active Protocol: Document 04/05/22 10:38 [facility] (Rec: 04/05/22 13:34 [facility] [id number]) Therapeutic Exercises Supine Exercises supine bridges Reps/Minutes x10 reps TA with marches Reps/Minutes x 10 reps Comments work on pelvic floor isolation first diaphgramatic breathing Reps/Minutes x 4 min quick pelvic floor contractions Reps/Minutes x 10 reps holding 2 seconds on and 2 seconds off pelvic floor isolation Reps/Minutes 10 sec holds Comments 17.2 avg max 29.4 uv able to relax all the way to base line Neuro Re-Education Treatment Other Activities EMG biofeedback Details pelvic floor neuro re- education with EMG biofeedback Comments good tolerance for EMG biofeedback, able to relax to baseline today following diaphragmatic breathing PT-OP-T Assessment and Plan Start: 03/21/22 09:20 Freq: Status: Active Protocol: Document 04/05/22 10:38 [facility] (Rec: 04/05/22 13:34 [facility] [id number]) Physical Therapy Assessment Goals 4 Impairment Decreased endurance of the levator ani with Joi being able to sustain a contraction for 3 seconds in supine Short Term Goal (STG) Joi is able to sustain a pelvic floor contraction x 10 seconds in supine STG Duration 6 weeks [employer] Goal (LTG) Joi is able to sustain a pelvic floor contraction x 10 seconds in supine and standing LTG Duration 12 weeks 3 Impairment Muscle guarding of the left lateral wall of the levator ani and in the obturator internus on the left Short Term Goal (STG) Joi is educated on stretches for her pelvic floor and hip ER to help relax the pelvic floor at rest and improve her ability to fully void STG Duration 4 weeks 2 Impairment Decreased strength of the levator ani Long-Term Goal (LTG) Joi is able to improve strength of the levator ani by 1 muscle grade or better for improved support to her bladder LTG Duration 12 weeks 1 Impairment urinary stress incontinence made worse with walking and with change of positions such as sit-stand [employer] Goal (LTG) Joi reports a overall reduction in urinary stress incontinence and is able to walk the loop at [facility] without leaking LTG Duration 12 weeks Assessment Summary Assessment Joi did well with diaphragmatic breathing today and after a few minutes of diaphragmatic breathing she was better able to relax her pelvic floor to baseline. Physical Therapy Plan Frequency and Duration Frequency of Treatment 1x/Week Duration of Treatment 12 Plan of Care Start Date 03/21/22 Plan of Care End Date 06/21/22 Next Visit Focus/Plan Next Note Type Treatment Note Next Visit Plan progress lower abdominal stabilization and hip exercises with pelvic floor recruitment next visit
--- NOTE | 2022-04-18 13:58 | PT.OTN ---
Current Diagnoses Trochanteric bursitis, left hip (04/18/22) Iliotibial band syndrome, left leg (04/18/22) Unspecified urinary incontinence (04/18/22) Physical Therapy Treatment Note PT-OP-A Visit Information Start: 03/21/22 09:20 Freq: Status: Active Protocol: Document 04/18/22 12:02 [facility] (Rec: 04/18/22 12:47 [facility] [id number]) Out-Patient Physical Therapy Visit Information Visit Information Visit Type Treatment Note Visit Start Time 12:02 Visit Stop Time 12:45 Total Visit Minutes 43 Visit Number 4 PT-OP-B Current Condition Start: 03/21/22 09:20 Freq: Status: Active Protocol: Document 03/21/22 10:30 [facility] (Rec: 03/21/22 11:19 [facility] [id number]) Current Condition History of Current Condition Onset Date 1.5 years ago History of Current Condition pt had a history of ITB issues x 6 weeks and she has been going to PT for this and it is better. pts symtoms started with walking [employer] [place], she started wearing a pad with walking, it seemed to progresss. Then she started noticing leaking that happened after her coffee in the am and she started wearing pads. Leakage can occur with getting up and down and coughing. She does note that she has had more urgency to void. She does wake up and void 1 xm per night. Sometimes two times per night Prior Treatments and Tests 1 vaginal delivery. PT-OP-C Subjective Start: 03/21/22 09:20 Freq: Status: Active Protocol: Document 04/18/22 12:02 [facility] (Rec: 04/18/22 12:47 [facility] [id number]) OP-PT Subjective Patient Comments Patient Comments the other day she was able to walk without leakage x 2 miles . Patient Reported Progress Improving PT-OP-I Pelvic Floor Start: 03/21/22 14:12 Freq: Status: Active Protocol: Document 03/21/22 10:30 [facility] (Rec: 03/21/22 14:17 [facility] [id number]) Pelvic Floor Assessment Urine Pelvic Floor Surgery No Urinary Symptoms Urge Sensation Leakage Size Large Leakage Cause Cough,Exercise,Lifting,Sneeze Other Leakage Causes leakage increases with walking . Joi reports she uses a size 5 pad which is a heavy duty pad and she fills it up on a walk. No leaks at night Nocturia 1-2 times per night Pelvic Clock Pelvic Clock 3-6 Guarding Pelvic Clock 6-9 Guarding Pelvic Clock Other left side guarding and difficulty relaxing following a contraction Contraction Ability Voluntary Contraction Weak Voluntary Relaxation Weak Manual Muscle Testing Left 3 Manual Muscle Testing Right 3 Manual Muscle Testing Anterior 2 Manual Muscle Testing Posterior 2 Muscle Endurance (Seconds) 3 Comments Pelvic Floor Comments Decreased endurnace of the pelvic floor, pt is guarded on the left and she has difficulty relaxing her pelvic floor following a contraction due to guarding on the left side PT-OP-J Posture/Palpation/Skin Start: 03/21/22 09:20 Freq: Status: Active Protocol: Document 03/21/22 10:30 [facility] (Rec: 03/22/22 15:08 [facility] [id number]) Palpation Assessment Location left lateral garsia of the levator ani Palpation Findings Soft Tissue Tightness,Muscle Guarding,Tenderness Palpation Details pt has history of left sided trochteric bursitis and hip pain, left sided pelvic floor guarding PT-OP-Q Treatments Start: 03/21/22 09:20 Freq: Status: Active Protocol: Document 04/18/22 12:02 [facility] (Rec: 04/18/22 12:47 [facility] [id number]) Therapeutic Exercises Supine Exercises templates for coordination and eccentric control Reps/Minutes x 5 min TA with level 2 abdominal progression Reps/Minutes x 10 up up down down supine bridges Supine Exercise Name HEP TA with marches Reps/Minutes x 10 reps Comments work on pelvic floor isolation first diaphgramatic breathing Reps/Minutes x 4 min quick pelvic floor contractions Reps/Minutes x 10 reps holding 2 seconds on and 2 seconds off pelvic floor isolation Reps/Minutes 10 reps Comments 16.5 25.7 uv, resting tone down to baseline between contractions Neuro Re-Education Treatment Other Activities EMG biofeedback Details pelvic floor neuro re- education with EMG biofeedback Comments able to stay at baseline for exercises today PT-OP-T Assessment and Plan Start: 03/21/22 09:20 Freq: Status: Active Protocol: Document 04/18/22 12:02 [facility] (Rec: 04/18/22 12:47 [facility] [id number]) Physical Therapy Assessment Goals 4 Impairment Decreased endurance of the levator ani with Joi being able to sustain a contraction for 3 seconds in supine Short Term Goal (STG) Joi is able to sustain a pelvic floor contraction x 10 seconds in supine STG Duration 6 weeks Intermediate Goal (LTG) Joi is able to sustain a pelvic floor contraction x 10 seconds in supine and standing LTG Duration 12 weeks 3 Impairment Muscle guarding of the left lateral wall of the levator ani and in the obturator internus on the left Short Term Goal (STG) Joi is educated on stretches for her pelvic floor and hip ER to help relax the pelvic floor at rest and improve her ability to fully void STG Duration 4 weeks 2 Impairment Decreased strength of the levator ani [employer] Goal (LTG) Joi is able to improve strength of the levator ani by 1 muscle grade or better for improved support to her bladder LTG Duration 12 weeks 1 Impairment urinary stress incontinence made worse with walking and with change of positions such as sit-stand [employer] Goal (LTG) Joi reports a overall reduction in urinary stress incontinence and is able to walk the loop at [facility] without leaking LTG Duration 12 weeks Assessment Summary Assessment she hasn't had to get up and go to the bathroom at night, she is not quite as damp at the end of the day. She has been sitting for longer to void. Pts resting tone was improved today and she was able to stay at baseline for her exercises Physical Therapy Plan Frequency and Duration Frequency of Treatment 1x/Week Duration of Treatment 12 Plan of Care Start Date 03/21/22 Plan of Care End Date 06/21/22 Therapeutic Interventions Therapeutic Interventions Home Exercise Program, Neuromuscular Re-education, Self-Care/Home Management,Soft Tissue Mobilization, Therapeutic Exercises Next Visit Focus/Plan Next Note Type Treatment Note Next Visit Plan progress lower abdominal stabilization and hip exercises with pelvic floor recruitment next visit
--- NOTE | 2022-05-01 13:36 | PT.OTN ---
Current Diagnoses Trochanteric bursitis, left hip (05/01/22) Iliotibial band syndrome, left leg (05/01/22) Unspecified urinary incontinence (05/01/22) Physical Therapy Treatment Note PT-OP-A Visit Information Start: 03/21/22 09:20 Freq: Status: Active Protocol: Document 05/01/22 11:20 [facility] (Rec: 05/01/22 11:59 [facility] [id number]) Out-Patient Physical Therapy Visit Information Visit Information Visit Type Treatment Note Visit Start Time 11:20 Visit Stop Time 12:00 Total Visit Minutes 40 Visit Number 5 PT-OP-B Current Condition Start: 03/21/22 09:20 Freq: Status: Active Protocol: Document 03/21/22 10:30 [facility] (Rec: 03/21/22 11:19 [facility] [id number]) Current Condition History of Current Condition Onset Date 1.5 years ago History of Current Condition pt had a history of ITB issues x 6 weeks and she has been going to PT for this and it is better. pts symtoms started with walking [place], she started wearing a pad with walking, it seemed to progresss. Then she started noticing leaking that happened after her coffee in the am and she started wearing pads. Leakage can occur with getting up and down and coughing. She does note that she has had more urgency to void. She does wake up and void 1 xm per night. Sometimes two times per night Prior Treatments and Tests 1 vaginal delivery. PT-OP-C Subjective Start: 03/21/22 09:20 Freq: Status: Active Protocol: Document 05/01/22 11:20 [facility] (Rec: 05/01/22 11:59 [facility] [id number]) OP-PT Subjective Patient Comments Patient Comments pt has been trying to work on pelvic floor a couple of times per day. She is not waking up as much at night to void. Now she is waking up 1-0 times night. PT-OP-I Pelvic Floor Start: 03/21/22 14:12 Freq: Status: Active Protocol: Document 03/21/22 10:30 [facility] (Rec: 03/21/22 14:17 [facility] [id number]) Pelvic Floor Assessment Urine Pelvic Floor Surgery No Urinary Symptoms Urge Sensation Leakage Size Large Leakage Cause Cough,Exercise,Lifting,Sneeze Other Leakage Causes leakage increases with walking . Joi reports she uses a size 5 pad which is a heavy duty pad and she fills it up on a walk. No leaks at night Nocturia 1-2 times per night Pelvic Clock Pelvic Clock 3-6 Guarding Pelvic Clock 6-9 Guarding Pelvic Clock Other left side guarding and difficulty relaxing following a contraction Contraction Ability Voluntary Contraction Weak Voluntary Relaxation Weak Manual Muscle Testing Left 3 Manual Muscle Testing Right 3 Manual Muscle Testing Anterior 2 Manual Muscle Testing Posterior 2 Muscle Endurance (Seconds) 3 Comments Pelvic Floor Comments Decreased endurnace of the pelvic floor, pt is guarded on the left and she has difficulty relaxing her pelvic floor following a contraction due to guarding on the left side PT-OP-J Posture/Palpation/Skin Start: 03/21/22 09:20 Freq: Status: Active Protocol: Document 03/21/22 10:30 [facility] (Rec: 03/22/22 15:08 [facility] [id number]) Palpation Assessment Location left lateral garsia of the levator ani Palpation Findings Soft Tissue Tightness,Muscle Guarding,Tenderness Palpation Details pt has history of left sided trochteric bursitis and hip pain, left sided pelvic floor guarding PT-OP-Q Treatments Start: 03/21/22 09:20 Freq: Status: Active Protocol: Document 05/01/22 11:20 [facility] (Rec: 05/01/22 11:59 [facility] [id number]) Therapeutic Exercises Supine Exercises templates for coordination and eccentric control Reps/Minutes x 5 min diaphgramatic breathing Reps/Minutes x 4 min Comments inhale x 4 exhale x 6, this helped to reduce resting tone pelvic floor isolation Comments 18.5 uv average and 32 uv max Self-Care/Home Management Treatment Education Patient Education Home Exercise Program Other Education modified quick contractions to begin working in standing positions, worked on exhale with a contraction and pelvic floor contractions prior to a sneeze PT-OP-T Assessment and Plan Start: 03/21/22 09:20 Freq: Status: Active Protocol: Document 05/01/22 11:20 [facility] (Rec: 05/01/22 11:59 [facility] [id number]) Physical Therapy Assessment Goals 4 Impairment Decreased endurance of the levator ani with Joi being able to sustain a contraction for 3 seconds in supine Short Term Goal (STG) Joi is able to sustain a pelvic floor contraction x 10 seconds in supine 05/01/22 excellent progress STG Duration 6 weeks Custodial Goal (LTG) Joi is able to sustain a pelvic floor contraction x 10 seconds in supine and standing LTG Duration 12 weeks 3 Impairment Muscle guarding of the left lateral wall of the levator ani and in the obturator internus on the left Short Term Goal (STG) Joi is educated on stretches for her pelvic floor and hip ER to help relax the pelvic floor at rest and improve her ability to fully void 05/01/22 Goal met STG Duration 4 weeks 2 Impairment Decreased strength of the levator ani Plasterer Journeyman Goal (LTG) Joi is able to improve strength of the levator ani by 1 muscle grade or better for improved support to her bladder LTG Duration 12 weeks 1 Impairment urinary stress incontinence made worse with walking and with change of positions such as sit-stand Plasterer Journeyman Goal (LTG) Joi reports a overall reduction in urinary stress incontinence and is able to walk the loop at [facility] without leaking LTG Duration 12 weeks Assessment Summary Assessment With diaphragmatic breathing Joi was able to relax to baseline on EMG biofeedback. She does still leak with strong cough and sneeze so we talked today about trying with tighten her pelvic floor with a exhale and with sneezing to work on the relax ability. Physical Therapy Plan Frequency and Duration Frequency of Treatment 1x/Week Duration of Treatment 12 Plan of Care Start Date 03/21/22 Plan of Care End Date 06/21/22 Therapeutic Interventions Therapeutic Interventions Home Exercise Program, Neuromuscular Re-education, Self-Care/Home Management,Soft Tissue Mobilization, Therapeutic Exercises Next Visit Focus/Plan Next Note Type Treatment Note Next Visit Plan trial of EMG biofeedback standing for quick pelvic floor recruitment
--- NOTE | 2022-05-09 11:45 | PT.OTN ---
Current Diagnoses Trochanteric bursitis, left hip (05/17/22) Iliotibial band syndrome, left leg (05/17/22) Unspecified urinary incontinence (05/17/22) Physical Therapy Treatment Note PT-OP-A Visit Information Start: 03/21/22 09:20 Freq: Status: Active Protocol: Document 05/09/22 11:15 [facility] (Rec: 05/17/22 10:09 [facility] [id number]) Out-Patient Physical Therapy Visit Information Visit Information Visit Type Treatment Note Visit Start Time 11:15 Visit Stop Time 12:00 Total Visit Minutes 45 Visit Number 6 PT-OP-B Current Condition Start: 03/21/22 09:20 Freq: Status: Active Protocol: Document 03/21/22 10:30 [facility] (Rec: 03/21/22 11:19 [facility] [id number]) Current Condition History of Current Condition Onset Date 1.5 years ago History of Current Condition pt had a history of ITB issues x 6 weeks and she has been going to PT for this and it is better. pts symtoms started with walking adair [place], she started wearing a pad with walking, it seemed to progresss. Then she started noticing leaking that happened after her coffee in the am and she started wearing pads. Leakage can occur with getting up and down and coughing. She does note that she has had more urgency to void. She does wake up and void 1 xm per night. Sometimes two times per night Prior Treatments and Tests 1 vaginal delivery. PT-OP-C Subjective Start: 03/21/22 09:20 Freq: Status: Active Protocol: Document 05/17/22 09:51 [facility] (Rec: 05/17/22 09:52 [facility] [id number]) OP-PT Subjective Patient Comments Patient Comments pt reports on her walks she is doing better, decreased leaking. SHe is able to contract when she feels it coming on. PT-OP-I Pelvic Floor Start: 03/21/22 14:12 Freq: Status: Active Protocol: Document 03/21/22 10:30 [facility] (Rec: 03/21/22 14:17 [facility] [id number]) Pelvic Floor Assessment Urine Pelvic Floor Surgery No Urinary Symptoms Urge Sensation Leakage Size Large Leakage Cause Cough,Exercise,Lifting,Sneeze Other Leakage Causes leakage increases with walking . Joi reports she uses a size 5 pad which is a heavy duty pad and she fills it up on a walk. No leaks at night Nocturia 1-2 times per night Pelvic Clock Pelvic Clock 3-6 Guarding Pelvic Clock 6-9 Guarding Pelvic Clock Other left side guarding and difficulty relaxing following a contraction Contraction Ability Voluntary Contraction Weak Voluntary Relaxation Weak Manual Muscle Testing Left 3 Manual Muscle Testing Right 3 Manual Muscle Testing Anterior 2 Manual Muscle Testing Posterior 2 Muscle Endurance (Seconds) 3 Comments Pelvic Floor Comments Decreased endurnace of the pelvic floor, pt is guarded on the left and she has difficulty relaxing her pelvic floor following a contraction due to guarding on the left side PT-OP-J Posture/Palpation/Skin Start: 03/21/22 09:20 Freq: Status: Active Protocol: Document 03/21/22 10:30 [facility] (Rec: 03/22/22 15:08 [facility] [id number]) Palpation Assessment Location left lateral garsia of the levator ani Palpation Findings Soft Tissue Tightness,Muscle Guarding,Tenderness Palpation Details pt has history of left sided trochteric bursitis and hip pain, left sided pelvic floor guarding PT-OP-Q Treatments Start: 03/21/22 09:20 Freq: Status: Active Protocol: Document 05/09/22 11:15 [facility] (Rec: 05/17/22 10:16 [facility] [id number]) Therapeutic Exercises Supine Exercises TA with level 2 abdominal progression Reps/Minutes x 10 up up down down TA with marches Reps/Minutes x 10 reps Comments work on pelvic floor isolation first diaphgramatic breathing Reps/Minutes x 4 min Comments inhale x 4 exhale x 6, this helped to reduce resting tone Manual Therapy Treatment Soft Tissue Mobilization ITB relese Body Position right sidelying PT-OP-T Assessment and Plan Start: 03/21/22 09:20 Freq: Status: Active Protocol: Document 05/09/22 11:15 [facility] (Rec: 05/17/22 10:16 [facility] [id number]) Physical Therapy Assessment Assessment Summary Assessment Joi did not have her electrode with her today so time was spent on core without EMG biofeedback. I worked on release of her ITB as well as this was still feeling tight for her Physical Therapy Plan Frequency and Duration Frequency of Treatment 1x/Week Duration of Treatment 12 Plan of Care Start Date 03/21/22 Plan of Care End Date 06/21/22 Next Visit Focus/Plan Next Note Type Treatment Note Next Visit Plan trial of EMG biofeedback standing for quick pelvic floor recruitment
--- NOTE | 2022-05-17 17:56 | PT.OTN ---
Current Diagnoses Trochanteric bursitis, left hip (05/17/22) Iliotibial band syndrome, left leg (05/17/22) Unspecified urinary incontinence (05/17/22) Physical Therapy Treatment Note PT-OP-A Visit Information Start: 03/21/22 09:20 Freq: Status: Active Protocol: Document 05/17/22 09:51 [facility] (Rec: 05/17/22 10:35 [facility] [id number]) Out-Patient Physical Therapy Visit Information Visit Information Visit Type Treatment Note Visit Start Time 09:45 Visit Stop Time 10:30 Total Visit Minutes 45 Visit Number 7 PT-OP-B Current Condition Start: 03/21/22 09:20 Freq: Status: Active Protocol: Document 03/21/22 10:30 [facility] (Rec: 03/21/22 11:19 [facility] [id number]) Current Condition History of Current Condition Onset Date 1.5 years ago History of Current Condition pt had a history of ITB issues x 6 weeks and she has been going to PT for this and it is better. pts symtoms started with walking [place], she started wearing a pad with walking, it seemed to progresss. Then she started noticing leaking that happened after her coffee in the am and she started wearing pads. Leakage can occur with getting up and down and coughing. She does note that she has had more urgency to void. She does wake up and void 1 xm per night. Sometimes two times per night Prior Treatments and Tests 1 vaginal delivery. PT-OP-C Subjective Start: 03/21/22 09:20 Freq: Status: Active Protocol: Document 05/17/22 09:51 [facility] (Rec: 05/17/22 09:52 [facility] [id number]) OP-PT Subjective Patient Comments Patient Comments pt reports on her walks she is doing better, decreased leaking. SHe is able to contract when she feels it coming on. PT-OP-I Pelvic Floor Start: 03/21/22 14:12 Freq: Status: Active Protocol: Document 03/21/22 10:30 [facility] (Rec: 03/21/22 14:17 [facility] [id number]) Pelvic Floor Assessment Urine Pelvic Floor Surgery No Urinary Symptoms Urge Sensation Leakage Size Large Leakage Cause Cough,Exercise,Lifting,Sneeze Other Leakage Causes leakage increases with walking . Joi reports she uses a size 5 pad which is a heavy duty pad and she fills it up on a walk. No leaks at night Nocturia 1-2 times per night Pelvic Clock Pelvic Clock 3-6 Guarding Pelvic Clock 6-9 Guarding Pelvic Clock Other left side guarding and difficulty relaxing following a contraction Contraction Ability Voluntary Contraction Weak Voluntary Relaxation Weak Manual Muscle Testing Left 3 Manual Muscle Testing Right 3 Manual Muscle Testing Anterior 2 Manual Muscle Testing Posterior 2 Muscle Endurance (Seconds) 3 Comments Pelvic Floor Comments Decreased endurnace of the pelvic floor, pt is guarded on the left and she has difficulty relaxing her pelvic floor following a contraction due to guarding on the left side PT-OP-J Posture/Palpation/Skin Start: 03/21/22 09:20 Freq: Status: Active Protocol: Document 03/21/22 10:30 [facility] (Rec: 03/22/22 15:08 [facility] [id number]) Palpation Assessment Location left lateral garsia of the levator ani Palpation Findings Soft Tissue Tightness,Muscle Guarding,Tenderness Palpation Details pt has history of left sided trochteric bursitis and hip pain, left sided pelvic floor guarding PT-OP-Q Treatments Start: 03/21/22 09:20 Freq: Status: Active Protocol: Document 05/17/22 09:51 [facility] (Rec: 05/17/22 10:35 [facility] [id number]) Therapeutic Exercises Supine Exercises templates for coordination and eccentric control Reps/Minutes x 5 min diaphgramatic breathing Reps/Minutes x 4 min Comments inhale x 4 exhale x 6, this helped to reduce resting tone quick pelvic floor contractions Reps/Minutes x 10 reps holding 2 seconds on and 2 seconds off pelvic floor isolation Comments 23.0 average and max of 36 Self-Care/Home Management Treatment Education Patient Education Home Exercise Program Other Education pt brought in her hypervolt massage gun and she was shown how to use it on her ITB PT-OP-T Assessment and Plan Start: 03/21/22 09:20 Freq: Status: Active Protocol: Document 05/17/22 09:51 [facility] (Rec: 05/17/22 15:54 [facility] [id number]) Physical Therapy Assessment Goals 4 Impairment Decreased endurance of the levator ani with Joi being able to sustain a contraction for 3 seconds in supine Short Term Goal (STG) Joi is able to sustain a pelvic floor contraction x 10 seconds in supine 05/01/22 excellent progress STG Duration 6 weeks Half-Way Goal (LTG) Joi is able to sustain a pelvic floor contraction x 10 seconds in supine and standing LTG Duration 12 weeks 3 Impairment Muscle guarding of the left lateral wall of the levator ani and in the obturator internus on the left Short Term Goal (STG) Joi is educated on stretches for her pelvic floor and hip ER to help relax the pelvic floor at rest and improve her ability to fully void 05/01/22 Goal met STG Duration 4 weeks 2 Impairment Decreased strength of the levator ani Roundsman Goal (LTG) Joi is able to improve strength of the levator ani by 1 muscle grade or better for improved support to her bladder LTG Duration 12 weeks 1 Impairment urinary stress incontinence made worse with walking and with change of positions such as sit-stand Roundsman Goal (LTG) Joi reports a overall reduction in urinary stress incontinence and is able to walk the loop at [facility] without leaking LTG Duration 12 weeks Assessment Summary Assessment Joi is doing better overall with her pelvic floor strengthening and her symptoms have started to decrease. She is independent with her HEP and will be DC to a home program today
== END 2022-05-28 11:03 ==
LOC: PHYS 09:45
PROVIDERS: Family Provider Student in an Organized Health Care Education/Training Program; PCP Student in an Organized Health Care Education/Training Program; Referring Provider Student in an Organized Health Care Education/Training Program; Visit Provider Student in an Organized Health Care Education/Training Program
DX: R32 Unspecified urinary incontinence (principal); M70.62 Trochanteric bursitis, left hip; M76.32 Iliotibial band syndrome, left leg
CPT/HCPCS: 97110; 97112; 97140; 97161; 97535

== ENCOUNTER → 2023-02-08 15:01 | Outpatient (CLI) | payer MEDICARE, SELFPAY ==
--- NOTE | 2023-02-08 | DI.MG.S_ITS ---
BILATERAL DIGITAL SCREENING MAMMOGRAM 3D/2D WITH CAD: 02/08/2023 CLINICAL: Routine screening. Comparison is made to exams dated: 01/09/2022 mammogram, 01/07/2021 mammogram, and 12/10/2019 mammogram - [facility]. Both breasts are heterogeneously dense, which may obscure small masses (category c / 51-75% glandular tissue). Current study was also evaluated with a Computer Aided Detection (CAD) system. No significant masses, calcifications, or other findings are seen in either breast. There has been no significant interval change. IMPRESSION: NEGATIVE There is no mammographic evidence of malignancy. A 1 year screening mammogram is recommended. Based on the Tyrer Cuzick model (a risk assessment model) the patient's lifetime risk is 5.4% and her 10 year risk is 0.0%. According to the ACR, ACS, and NCCN guidelines, an annual breast MRI exam along with mammogram is recommended if the patient's lifetime risk is 20% or greater. This exam was interpreted at Station ID: [id number]. NOTE: For mammograms, a report in lay terms will be sent to the patient. Approximately 15% of breast malignancies will not be visualized mammographically. In the management of a palpable breast mass, a negative mammogram must not discourage biopsy of a clinically suspicious lesion. Electronically Signed By: Florina desai/shari:02/08/2023 17:53:23 letter sent: Normal Exam ACR BI-RADS Category 1: Negative 3341F
== END ==
PROVIDERS: Family Provider Student in an Organized Health Care Education/Training Program; PCP Student in an Organized Health Care Education/Training Program; Referring Provider Student in an Organized Health Care Education/Training Program; Visit Provider Student in an Organized Health Care Education/Training Program
DX: Z12.31 Encounter for screening mammogram for malignant neoplasm of breast (principal)
CPT/HCPCS: 77063; 77067

== ENCOUNTER → 2023-02-16 10:39 | Outpatient (CLI) | payer MEDICARE, SELFPAY ==
[2023-02-16 11:44] LABS: Alanine Aminotransferase 30 IU/L (<35); Albumin 4.2 g/dL (3.5-5.0); Albumin Globulin Ratio 1.7 (1.0-2.8); Alkaline Phosphatase 69 U/L (38-126); Aspartate Aminotransferase 25 IU/L (14-36); BUN Creatinine Ratio 22.4 (6-22); Bilirubin Total 1.5 mg/dL (0.2-1.3); Blood Urea Nitrogen 15 mg/dL (7-17); Calcium 9.6 mg/dL (8.4-10.2); Carbon Dioxide 29 mmol/L (22-32); Chloride 102 mmol/L (98-107); Cholesterol 163 mg/dL (140-199); Estimated Glomerular Filt Rate > 60 mL/min (>60); Globulin 2.5 g/dL (1.7-4.1); Glucose 93 mg/dL (80-110); HDL Cholesterol 77 mg/dL (40-60); HEMOLYSIS < 15 (0-50); LDL Cholesterol Calculated 68 mg/dL (<100); Potassium 5.2 mmol/L (3.4-5.1); Sodium 136 mmol/L (137-145); Total Protein 6.7 g/dL (6.3-8.2); Triglycerides 89 mg/dL (35-150)
[2023-02-16 12:16] LABS: TSH w/ Reflex to FT4 0.89 uIU/mL (0.47-4.68)
== END ==
PROVIDERS: Family Provider Student in an Organized Health Care Education/Training Program; PCP Student in an Organized Health Care Education/Training Program; Referring Provider Student in an Organized Health Care Education/Training Program; Visit Provider Student in an Organized Health Care Education/Training Program
DX: E03.9 Hypothyroidism, unspecified (principal); E78.2 Mixed hyperlipidemia; F32.9 Major depressive disorder, single episode, unspecified
CPT/HCPCS: 36415; 80053; 80061; 84443

== ENCOUNTER → 2023-03-06 12:43 | Outpatient (CLI) | payer MEDICARE, SELFPAY ==
--- NOTE | 2023-03-06 12:46 | DI.RAD.S_ITS ---
Bone Density Report Name: NORY SANTOYO Age: 77 Sex: Female Ethnicity: White Date of : 1945 Indication: postmenopausal; screening for osteoporosis; Referring Provider: ZION CHOWDHURY Study: Bone densitometry was performed. Exam Date: March 06, 2023 Accession number: [id number] Bone Density: Region BMD T-score Z-score Classification AP Spine(L1-L4) 0.979 -0.6 1.9 Normal Femoral Neck (Left) 0.718 -1.2 1.0 Osteopenia Total Hip (Left) 0.924 -0.1 1.7 Normal Femoral Neck (Right) 0.694 -1.4 0.8 Osteopenia Total Hip (Right) 0.902 -0.3 1.5 Normal Total Hip Mean 0.913 -0.2 1.6 Normal World Health Organization criteria for BMD impression classify patients as: Normal (T-score at or above -1.0), Osteopenia (T-score between -1.0 and -2.5), or Osteoporosis (T-score at or below -2.5). 10-year Fracture Risk(1): Major Osteoporotic Fracture 11% Hip Fracture 2.3% Reported Risk Factors: [place] (), Neck BMD=0.694, BMI=22.3 (1) FRAX(R) Version 3.08. Fracture probability calculated for an untreated patient. Fracture probability may be lower if the patient has received treatment. Previous Exams: -- Region Exam Age BMD T-score BMD Change BMD Change Date g/cm2 vs Baseline vs Previous -- AP Spine (L1-L4) 03/06/2023 77 0.979 -0.6 -0.006 (-0.6%)# -0.006 (-0.6%)# 11/23/2020 75 0.985 -0.6 Total Hip(Left) 03/06/2023 77 0.924 -0.1 -0.023 (-2.5%)# -0.023 (-2.5%)# 11/23/2020 75 0.947 0.0 Total Hip(Right) 03/06/2023 77 0.902 -0.3 -0.037 (-4.0%)# -0.037 (-4.0%)# 11/23/2020 75 0.939 0.0 -- *Denotes significance at 95% confidence level, LSC for AP Spine = 0.022 g/cm2, LSC for Total Hip = 0.027 g/cm2 # Denotes dissimilar scan types or analysis methods Impression: The patient has low bone mass, based on the Right Femoral Neck T-score. The patient has an estimated ten-year risk of hip fracture of 2.3% and an estimated ten-year risk of major fracture of 11%, based on the WHO FRAX algorithm. No significant bone loss was observed. Discussion: BONE DENSITY IS LOW AT ONE OR MORE SKELETAL SITES. This patient's lowest T-score is low at one or more skeletal sites. It meets the World Health Organization's (WHO) criteria for low bone mass (T-score between -1.0 and -2.5). The patient's 10-year risk of fracture as calculated by FRAX is less than the threshold where pharmacological therapy is recommended by the National Osteoporosis Foundation (NOF). However, all treatment decisions require clinical judgment and consideration of individual patient factors, including patient preferences, comorbidities, previous drug use, risk factors not captured in the FRAX model (e.g., frailty, falls, vitamin D deficiency, increased bone turnover, interval significant decline in bone density) and possible under or overestimation of fracture risk by FRAX. The patient should follow a healthful lifestyle (good nutrition with adequate calcium and vitamin D, and appropriate weight-bearing exercise). Follow-Up: Consider repeating this study in 2 to 3 years to reassess this patient's status, or sooner if there is some new clinical indication. Reported by: ANA OMER MD on 03/06/2023 1:12:00 PM.
== END ==
PROVIDERS: Family Provider Student in an Organized Health Care Education/Training Program; PCP Student in an Organized Health Care Education/Training Program; Referring Provider Student in an Organized Health Care Education/Training Program; Visit Provider Student in an Organized Health Care Education/Training Program
DX: Z13.820 Encounter for screening for osteoporosis (principal); Z78.0 Asymptomatic menopausal state; M85.851 Other specified disorders of bone density and structure, right thigh
CPT/HCPCS: 77080

== ENCOUNTER → 2023-08-06 15:38 | Outpatient (CLI) | payer MEDICARE, SELFPAY ==
[2023-08-06 16:36] LABS: Add Manual Diff / Slide Review NO; Basophils Absolute Auto 100 /uL (0-100); Basophils Percent Auto 1.1 % (0-2); Eosinophils Absolute Auto 200 /uL (0-450); Eosinophils Percent Auto 3.1 % (2-4); Hematocrit 41.7 % (36-46); Hemoglobin 14.2 g/dL (12.0-16.0); Lymphocytes Absolute Auto 1700 /uL (1100-4500); Lymphocytes Percent Auto 27.3 % (25-40); Mean Corpuscular HGB Conc 34.1 % (30-36); Mean Corpuscular Hemoglobin 31.7 PG (26-34); Monocytes Absolute Auto 600 /uL (0-900); Monocytes Percent Auto 9.4 % (3-14); Neutrophils Absolute Auto 3600 /uL (1500-7000); Neutrophils Percent Auto 59.1 % (50-75); Platelet Count 167 X10^3/uL (150-400); Red Blood Cell Count 4.48 X10^6/uL (4.0-5.2); Red Cell Distribution Width 13.4 % (11.6-14.8); White Blood Cell Count 6.1 X10^3/uL (4.5-11.0)
[2023-08-06 17:19] LABS: TSH w/ Reflex to FT4 0.55 uIU/mL (0.47-4.68)
== END ==
PROVIDERS: Family Provider Student in an Organized Health Care Education/Training Program; PCP Family Medicine; Referring Provider Family Medicine; Visit Provider Family Medicine
DX: R00.2 Palpitations (principal); R53.83 Other fatigue; R03.0 Elevated blood-pressure reading, without diagnosis of hypertension
CPT/HCPCS: 36415; 84443; 85025

== ENCOUNTER → 2024-01-07 09:53 | Outpatient (CLI) | payer MEDICARE, SELFPAY ==
[2024-01-07 11:37] LABS: Add Manual Diff / Slide Review NO; Basophils Absolute Auto 0 /uL (0-100); Basophils Percent Auto 1.2 % (0-2); Eosinophils Absolute Auto 200 /uL (0-450); Eosinophils Percent Auto 4.2 % (2-4); Hematocrit 43.6 % (36-46); Hemoglobin 14.7 g/dL (12.0-16.0); Lymphocytes Absolute Auto 1300 /uL (1100-4500); Lymphocytes Percent Auto 32.9 % (25-40); Mean Corpuscular HGB Conc 33.7 % (30-36); Mean Corpuscular Hemoglobin 31.6 PG (26-34); Mean Corpuscular Volume 93.7 fL (80-100); Monocytes Absolute Auto 500 /uL (0-900); Monocytes Percent Auto 11.8 % (3-14); Neutrophils Absolute Auto 1900 /uL (1500-7000); Neutrophils Percent Auto 49.9 % (50-75); Platelet Count 177 X10^3/uL (150-400); Red Blood Cell Count 4.65 X10^6/uL (4.0-5.2); White Blood Cell Count 3.9 X10^3/uL (4.5-11.0)
[2024-01-07 11:53] LABS: Alanine Aminotransferase 29 IU/L (<35); Albumin 4.4 g/dL (3.5-5.0); Albumin Globulin Ratio 1.5 (1.0-2.8); Alkaline Phosphatase 68 U/L (38-126); Aspartate Aminotransferase 24 IU/L (14-36); BUN Creatinine Ratio 26.8 (6-22); Bilirubin Total 1.3 mg/dL (0.2-1.3); Blood Urea Nitrogen 19 mg/dL (7-17); Calcium 9.7 mg/dL (8.4-10.2); Carbon Dioxide 28 mmol/L (22-32); Chloride 103 mmol/L (98-107); Cholesterol 165 mg/dL (140-199); Estimated Glomerular Filt Rate > 60 mL/min (>60); Glucose 83 mg/dL (80-110); HDL Cholesterol 68 mg/dL (40-60); HEMOLYSIS < 15 (0-50); LDL Cholesterol Calculated 72 mg/dL (<100); Potassium 4.7 mmol/L (3.4-5.1); Sodium 140 mmol/L (137-145); Total Protein 7.4 g/dL (6.3-8.2); Triglycerides 123 mg/dL (35-150)
[2024-01-07 11:56] LABS: HEMOLYSIS < 15 (0-50); Iron 130 ug/dL (37-170)
[2024-01-07 12:06] LABS: Percent Iron Saturation 39 % (15-50); Total Iron Binding Capacity 337 ug/dL (265-497); Transferrin 290 mg/dL (206-381)
[2024-01-07 12:23] LABS: TSH w/ Reflex to FT4 0.99 uIU/mL (0.47-4.68)
[2024-01-07 12:26] LABS: Ferritin 35 ng/mL (11-264)
== END ==
PROVIDERS: Family Provider Student in an Organized Health Care Education/Training Program; PCP Family Medicine; Referring Provider Physician Assistant; Visit Provider Physician Assistant
DX: E03.9 Hypothyroidism, unspecified (principal); Z63.6 Dependent relative needing care at home; E78.2 Mixed hyperlipidemia; R53.83 Other fatigue; R00.2 Palpitations; R03.0 Elevated blood-pressure reading, without diagnosis of hypertension
CPT/HCPCS: 36415; 80053; 80061; 82728; 83540; 83550; 84443; 85025

== ENCOUNTER → 2024-01-16 13:43 | Outpatient (CLI) | payer MEDICARE, SELFPAY | LOC: CAR 13:44 | PROVIDERS: Family Provider Student in an Organized Health Care Education/Training Program; PCP Family Medicine; Referring Provider Physician Assistant; Visit Provider Physician Assistant | DX: R00.2 Palpitations (principal) | CPT/HCPCS: 93246 ==

== ENCOUNTER → 2024-03-03 14:29 | Outpatient (CLI) | payer MEDICARE, SELFPAY ==
--- NOTE | 2024-03-03 14:30 | DI.MG.S_ITS ---
BILATERAL DIGITAL SCREENING MAMMOGRAM 3D/2D WITH CAD: 03/03/2024 CLINICAL: Routine screening. Comparison is made to exams dated: 02/08/2023 mammogram, 01/09/2022 mammogram, and 01/07/2021 mammogram - [facility]. Both breasts are heterogeneously dense, which may obscure small masses (category c / 51-75% glandular tissue). Current study was also evaluated with a Computer Aided Detection (CAD) system. No significant masses, calcifications, or other findings are seen in either breast. There has been no significant interval change. IMPRESSION: NEGATIVE There is no mammographic evidence of malignancy. A 1 year screening mammogram is recommended. Based on the Tyrer Cuzick model (a risk assessment model) the patient's lifetime risk is 4.9% and her 10 year risk is 0.0%. According to the ACR, ACS, and NCCN guidelines, an annual breast MRI exam along with mammogram is recommended if the patient's lifetime risk is 20% or greater. This exam was interpreted at Station ID: [id number]. NOTE: For mammograms, a report in lay terms will be sent to the patient. Approximately 15% of breast malignancies will not be visualized mammographically. In the management of a palpable breast mass, a negative mammogram must not discourage biopsy of a clinically suspicious lesion. Electronically Signed By: Florina desai/shari:03/03/2024 16:36:41 letter sent: Normal Exam ACR BI-RADS Category 1: Negative 3341F
== END ==
LOC: MAMMO 14:30
PROVIDERS: Family Provider Student in an Organized Health Care Education/Training Program; PCP Family Medicine; Referring Provider Family Medicine; Visit Provider Family Medicine
DX: Z12.31 Encounter for screening mammogram for malignant neoplasm of breast (principal); R92.333 Mammographic heterogeneous density, bilateral breasts
CPT/HCPCS: 77063; 77067

== ENCOUNTER → 2025-02-15 08:18 | Outpatient (CLI) | payer MEDICARE, SELFPAY ==
[2025-02-15 09:26] LABS: Alanine Aminotransferase 35 IU/L (<35); Albumin 4.5 g/dL (3.5-5.0); Albumin Globulin Ratio 1.9 (1.0-2.8); Alkaline Phosphatase 76 U/L (38-126); Aspartate Aminotransferase 34 IU/L (14-36); BUN Creatinine Ratio 30.1 (6-22); Bilirubin Total 1.8 mg/dL (0.2-1.3); Blood Urea Nitrogen 25 mg/dL (7-17); Calcium 9.4 mg/dL (8.4-10.2); Carbon Dioxide 28 mmol/L (22-32); Chloride 103 mmol/L (98-107); Cholesterol 205 mg/dL (140-199); Estimated Glomerular Filt Rate > 60 mL/min (>60); Globulin 2.4 g/dL (1.7-4.1); Glucose 99 mg/dL (80-110); HDL Cholesterol 85 mg/dL (40-60); HEMOLYSIS < 15 (0-50); LDL Cholesterol Calculated 98 mg/dL (<100); Potassium 4.8 mmol/L (3.4-5.1); Sodium 137 mmol/L (137-145); Total Protein 6.9 g/dL (6.3-8.2); Triglycerides 111 mg/dL (35-150)
[2025-02-15 09:55] LABS: TSH w/ Reflex to FT4 2.32 uIU/mL (0.47-4.68)
== END ==
LOC: LAB 08:19
PROVIDERS: PCP Family Medicine; Referring Provider Family Medicine; Visit Provider Family Medicine
DX: Z00.00 Encounter for general adult medical examination without abnormal findings (principal); E03.9 Hypothyroidism, unspecified; E78.2 Mixed hyperlipidemia; I47.10 Supraventricular tachycardia, unspecified
CPT/HCPCS: 36415; 80053; 80061; 84443

== ENCOUNTER → 2025-03-12 08:11 | Outpatient (CLI) | payer MEDICARE, SELFPAY ==
--- NOTE | 2025-03-12 08:13 | DI.MG.S_ITS ---
MM screening mammo BI: 03/12/2025. BI-RADS: 1 CLINICAL: 79-year old female for bilateral screening mammogram. Tyrer-Cuzick lifetime risk of 2.0%. No personal or first-degree family history of breast cancer. PRIOR EXAMS 03/03/2024, 02/08/2023, 01/09/2022, 01/07/2021, 12/10/2019, 11/29/2018, 10/31/2017, 10/25/2016, 10/24/2015. MAMMOGRAPHY TECHNIQUE: 2D and 3D (tomosynthesis) digital mammographic views obtained, with additional images as needed for full coverage. Current study was also evaluated with a Computer Aided Detection (CAD) system. DENSITY C. The breasts are heterogeneously dense, which may obscure small masses. MAMMOGRAPHY FINDINGS Bilateral: No suspicious mass, asymmetry, microcalcification, or other abnormality seen. IMPRESSION: * No evidence of malignancy. RECOMMENDATIONS Bilateral * Annual screening mammography. OVERALL ASSESSMENT CATEGORY BI-RADS-1: Negative. The [employer] recommends annual screening mammography beginning at age 40 for women with average risk of breast cancer. ELECTRONICALLY SIGNED: Boo Kwan M.D. on 03/12/2025 at 10:03:03 PM PT Interpreting Station ID: [id number]
== END ==
PROVIDERS: PCP Family Medicine; Referring Provider Family Medicine; Visit Provider Family Medicine
DX: Z12.31 Encounter for screening mammogram for malignant neoplasm of breast (principal); R92.333 Mammographic heterogeneous density, bilateral breasts
CPT/HCPCS: 77063; 77067

== ENCOUNTER → 2025-08-09 14:11 | Outpatient (CLI) | payer MEDICARE, SELFPAY ==
--- NOTE | 2025-08-09 14:12 | DI.RAD.S_ITS ---
PROCEDURE: XR DEXA AXIAL SKELETON INDICATIONS: screening COMPARISON: [facility], , XR DEXA AXIAL SKELETON, 03/06/2023, 13:05. FINDINGS: Lumbar Spine: L1-L4. Bone mineral density 1.016 g/cm2, T score -0.3. Left Femoral Neck: Bone mineral density 0.707 g/cm2, T score -1.3. Left Hip: Bone mineral density 0.927 g/cm2, T score -0.1. Fracture Risk Calculation (when applicable): 10-year fracture risk of a major osteoporotic fracture 11 percent and of a hip fracture 2.5 percent. (T score greater or equal to -1.0 to: NORMAL) (T score from -1.1 to -2.4: OSTEOPENIA) (T score less than or equal to -2.5: OSTEOPOROSIS) IMPRESSION: Osteopenia. Follow-up guidelines as follows: Osteoporosis: Consider a repeat DEXA and Vertebral Fracture Assessment (VFA) exam in 2 years or sooner if medically necessary, to reassess this patient's status. Osteopenia: Consider a repeat DEXA in 2-3 years to reassess this patient's status, or if there is a new clinical indication. Normal: Consider a repeat DEXA in 5 years or sooner, or if there is a new clinical indication. All treatment decisions require clinical judgment and consideration of individual patient factors, including patient preferences, comorbidities, previous drug use, risk factors not captured in the FRAX model (e.g., frailty, falls, vitamin D deficiency, increased bone turnover, interval significant decline in bone density ) and possible under- or over-estimation of fracture risk by FRAX. In addition, the NOF Guide recommends that FDA-approved medical therapies be considered in postmenopausal women and men age >= 50 years with a: * Hip or vertebral (clinical or morphometric) fracture * T-score of <=-2.5 at the spine or hip * Ten-year fracture probability by FRAX of >= 3% for hip fracture or >=20% for major osteoporotic fracture. Dictated by: Boo Kwan M.D. on 08/09/2025 at 16:45 Approved by: Boo Kwan M.D. on 08/09/2025 at 16:48
== END ==
PROVIDERS: PCP Family Medicine; Referring Provider Family Medicine; Visit Provider Family Medicine
DX: M85.89 Other specified disorders of bone density and structure, multiple sites (principal)
CPT/HCPCS: 77080

== ENCOUNTER → 2025-09-30 08:25 | Outpatient (CLI) | payer MEDICARE, SELFPAY ==
[2025-09-30 09:36] LABS: Add Manual Diff / Slide Review NO; Hematocrit 42.2 % (36-46); Hemoglobin 14.3 g/dL (12.0-16.0); Lymphocytes Absolute Auto 1200 /uL (1100-4500); Mean Corpuscular HGB Conc 33.9 % (30-36); Mean Corpuscular Hemoglobin 31.3 PG (26-34); Mean Corpuscular Volume 92.2 fL (80-100); Platelet Count 167 X10^3/uL (150-400)
[2025-09-30 10:01] LABS: Alanine Aminotransferase 30 IU/L (<35); Albumin 4.5 g/dL (3.5-5.0); Albumin Globulin Ratio 1.7 (1.0-2.8); Alkaline Phosphatase 69 U/L (38-126); Blood Urea Nitrogen 18 mg/dL (7-17); Calcium 9.7 mg/dL (8.4-10.2); Carbon Dioxide 27 mmol/L (22-32); Chloride 105 mmol/L (98-107); Estimated Glomerular Filt Rate > 60 mL/min (>60); Globulin 2.7 g/dL (1.7-4.1); Glucose 96 mg/dL (70-99); HEMOLYSIS < 15 (0-50); Lipase 92 U/L (23-300); Potassium 4.5 mmol/L (3.4-5.1); Sodium 139 mmol/L (137-145); Total Protein 7.2 g/dL (6.3-8.2)
[2025-09-30 10:33] LABS: TSH w/ Reflex to FT4 1.18 uIU/mL (0.47-4.68)
[2025-09-30 10:38] LABS: Ferritin 44 ng/mL (11-264)
== END ==
PROVIDERS: PCP Family Medicine; Referring Provider Family Medicine; Visit Provider Family Medicine
DX: R10.13 Epigastric pain (principal); E03.9 Hypothyroidism, unspecified; R53.82 Chronic fatigue, unspecified; Z63.6 Dependent relative needing care at home
CPT/HCPCS: 36415; 80053; 82728; 83690; 84443; 85025

== ENCOUNTER → 2025-10-02 13:29 | Outpatient (CLI) | payer MEDICARE, SELFPAY ==
--- NOTE | 2025-10-02 13:31 | DI.CT.S_ITS ---
PROCEDURE: CT ABDOMEN PELVIS W CON INDICATIONS: epiga abd pain, bloating TECHNIQUE: After the administration of intravenous contrast, axial sections acquired from the lung bases to the pubic symphysis. Coronal and sagittal reformats were performed. For radiation dose reduction, the following was used: automated exposure control, adjustment of mA and/or kV according to patient size. COMPARISON: None. FINDINGS: Image quality: Diagnostic. Lower Chest: No significant findings. ABDOMEN: Liver: 1.0 cm hyperattenuating lesion in the inferior right lobe of the liver. Gallbladder: No radiopaque gallstones or wall thickening. Biliary ducts: No biliary dilation. Pancreas: No ductal dilation. Spleen: Size is within normal limits. Subcentimeter cyst . Adrenal Glands: No adrenal nodules. Kidneys and Ureters: No hydronephrosis. No solid mass. No complex renal cystic lesion which requires follow up. Multiple pelvic simple cysts. Stomach and Bowel: Normal colonic caliber, without significant wall thickening. Peritoneum: No abnormal intraperitoneal fluid. No free air. Ventral Wall: No significant ventral hernia. Abdominal Nodes: No retroperitoneal or mesenteric adenopathy by size criteria. Vessels: Aorta and inferior vena cava are normal in size. PELVIS: Pelvic Organs: Unremarkable. Bladder: No bladder wall thickening, accounting for underdistention. Pelvic Nodes: No enlarged lymph nodes. Miscellaneous: No inguinal hernias are seen. Bones: No aggressive osseous abnormality. Severe degenerative changes in the lumbar spine with anterolisthesis at L4-L5 secondary to facet arthropathy. IMPRESSION: Negative for source of abdominal pain. Degenerative changes of the spine. Incidental liver lesion, possibly flash filling hemangioma. Consider further evaluation with MRI if the patient is high risk for liver malignancy. Dictated by: Dann De Paz M.D. on 10/02/2025 at 22:02 Approved by: Dann De Paz M.D. on 10/02/2025 at 22:08
== END ==
LOC: CT 13:30
PROVIDERS: PCP Family Medicine; Referring Provider Family Medicine; Visit Provider Family Medicine
DX: R10.13 Epigastric pain (principal); N28.1 Cyst of kidney, acquired; D73.4 Cyst of spleen; M47.816 Spondylosis without myelopathy or radiculopathy, lumbar region; M43.16 Spondylolisthesis, lumbar region; K76.9 Liver disease, unspecified
CPT/HCPCS: 74177; Q9967

== ENCOUNTER → 2025-10-28 12:33 | Outpatient (CLI) | payer MEDICARE, SELFPAY ==
--- NOTE | 2025-10-28 12:35 | DI.MRI.S_ITS ---
PROCEDURE: MR ABDOMEN WO/W CON INDICATIONS: eval of liver hemangioma TECHNIQUE: Coronal HASTE, axial 2D FLASH in- and [id number]; axial breath-hold T2 FSE. Dynamic axial VIBE during the administration of contrast; post-contrast coronal VIBE or 2D FLASH with fat saturation from the hepatic dome to the iliac crests. Optional diffusion weighted imaging and ADC may be performed. COMPARISON: [facility], CT, CT ABDOMEN PELVIS W CON, 10/02/2025, 13:47. FINDINGS: Image quality: Diagnostic. Lung bases: Clear lung bases. Mild cardiomegaly. Liver: Normal liver size and signal. Smooth margin. No mass or mass effect on precontrast imaging in inferior segment five to correspond to the CT finding, however there is a 1.1 cm hypervascular focus seen on arterial imaging in this area, less conspicuous on venous phase imaging, and nearly occult on delayed phase imaging. No other similar lesions are seen in the liver. Gallbladder: No stones, wall thickening, or pericholecystic fluid Biliary ducts: No biliary dilation. Pancreas: Normal size and morphology without visible ductal dilatation or inflammation. Homogeneous enhancement. Spleen: Size is within normal limits. Adrenal Glands: No adrenal nodules. Kidneys and Ureters: Symmetric enhancement. No nephrolithiasis or hydronephrosis. No visible mass or cyst requiring follow up. No hydroureter. Stomach and Bowel: Stomach and visible bowel loops are within normal limits. Peritoneum: No abnormal intraperitoneal fluid. No free air. Ventral Wall: No hernia. Abdominal Nodes: No retroperitoneal or mesenteric adenopathy by size criteria. Vessels: The abdominal aorta, IVC, and portal vein are of normal caliber. Bones: No aggressive osseous abnormality. IMPRESSION: 1.1 cm homogeneously hypervascular lesion following blood pool without mass effect. 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 Dictated by: Florina Holley M.D. on 10/29/2025 at 12:17 Approved by: Florina Holley M.D. on 10/29/2025 at 12:34
== END ==
LOC: MRI 12:34
PROVIDERS: PCP Family Medicine; Referring Provider Family Medicine; Visit Provider Family Medicine
DX: D18.03 Hemangioma of intra-abdominal structures (principal); I51.7 Cardiomegaly
CPT/HCPCS: 74183; A9579